=== PATIENT | female | born 1935 | race Caucasian/White ===

== ENCOUNTER 2020-06-26 14:29 | Inpatient (IN) | payer OTHER, BC ==
--- NOTE | 2020-06-26 16:12 | PDOC ---
History of Present Illness - General Chief Complaint: Respiratory Distress Stated Complaint: VOMITING NAUSEA WEAKNESS Time Seen by Provider: 06/26/20 15:30 History Source: Patient, Family Exam Limitations: No Limitations - History of Present Illness Initial Comments: 06/26/20 16:11 84F PMH RA, AFib, MV replacement, HTN BIBEMS for 1 day of severe weakness. Found to be hypoxic by EMS. Pt has experienced episodic weakness over the past few months but no episodes where this severe. No recent cough, sore throat, runny nose. Denies f/c, n/v, abd pain, dysuria. Has had weight loss over the past few months and poor appetite. no known sick contacts. Allergy to Sulfa drugs. PCP Dr. Oglesby. Past History - Medical History Allergies/Adverse Reactions: Allergies Allergy/AdvReac Type Severity Reaction Status Date / Time Sulfa (Sulfonamide Allergy Hives Verified 09/18/14 11:28 Antibiotics) [Sulfa(Sulfonamide Antibiotics)] Home Medications: Ambulatory Orders Folic Acid - 1 mg PO DAILY 08/29/12 Raloxifene HCl [Evista] 60 mg PO DAILY 08/29/12 Atorvastatin Ca [Lipitor] 20 mg PO HS #0 tablet 02/28/14 Azathioprine [Imuran -] 50 mg PO DAILY #0 tablet 02/28/14 Levothyroxine [Synthroid -] 75 mcg PO DAILY #0 tablet 02/28/14 Mexiletine HCl 150 mg PO TID #0 capsule 02/28/14 Olmesartan Medoxomil [Benicar -] 10 mg PO DAILY #0 tablet 02/28/14 Sotalol HCl [Betapace -] 160 mg PO BID #0 tablet 02/28/14 Warfarin Na [Coumadin -] 6 mg PO DAILY #0 tablet 02/28/14 Hydroxychloroquine So4 [Plaquenil -] 200 mg PO DAILY 09/18/14 Levofloxacin [Levaquin] 500 mg PO AC #10 tablet 09/23/14 Cancer: Yes (LUN01/2013) Cardiac Disorders: Yes (2 HEART VALVES REPLACED) COPD: No HTN: Yes Hypercholesterolemia: Yes Thyroid Disease: Yes (HYPO) - Surgical History Cardiac Surgery: Yes (2 VALVE REPLACEMENTS) Lung Surgery: Yes (LT PARTIAL PNEUMONECTOMY) - Psycho-Social/Smoking History Smoking Status: Yes Smoking History: Never smoked Have you smoked in the past 12 months: No Number of Cigarettes Smoked Daily: 0 If you are a former smoker, when did you quit?: 1989 - Substance Abuse Hx (Audit-C & DAST Scrn) How often the patient has a drink containing alcohol: Never Score: In Men: 4 or > Positive; In Women: 3 or > Positive: 0 Screen Result (Pos requires Nsg. Audit-10AR): Negative Review of Systems - Review of Systems Comments:: CONSTITUTIONAL: + generalized weakness, weight loss over months. Denies F / C HEENT: Denies sore throat, rhinorrhea RESP: Denies SOB, cough CARD: Denies chest pain GI: + poor appetite. Denies N / V / D : Denies dysuria NEURO: Denies numbness, tingling, weakness MSK: Denies back pain SKIN: Denies rashes *Physical Exam - Vital Signs Last Vital Signs Temp Pulse Resp BP Pulse Ox 98.1 F 83 20 93/43 L 100 06/26/20 15:38 06/26/20 15:38 06/26/20 15:38 06/26/20 15:38 06/26/20 15:38 - Physical Exam GEN: NAD, comfortable. AAOx3. HEENT: NC/AT, EOMI, PERRL. normal voice. Supple neck w/ FROM. CV: S1/S2, irregular, irregular, tachycardic LUNG: nondistressed respiration on 4L NC saturating 99%. WOB nl. no cyanosis. CTAB w/o wheezes, rales, crackles. GI: Soft, ndnt, +BS, no guarding, no rebound. MSK: No LE edema. No obvious deformities of all extremities. SKIN: Warm, dry, no rashes appreciated. PSYCH: Normal mood and affect. NEURO: Moving all extremities; able to sit upright by herself ED Treatment Course - LABORATORY CBC & Chemistry Diagram: 06/26/20 16:15 06/26/20 16:15 Medical Decision Making - Medical Decision Making 84F BIBEMS for severe generalized weakness. ?hypoxia per EMS. Examined while on 4L NC. DDX - Covid, PNA, consider PE though on warfarin, cardiac etiologies. consider possible malignancy. - cbc, cmp, lactic, cardiac, coags - VBG - CXR 10/07/20 18:11 labs reviewed elevated d-dimer and therapeutic level INR CXR image reviewed demonstrating possible infiltate on the LLL empirically cover with ceftriaxone and levaquin obtain CT Chest elevated troponin 1.24 obtaining EKG labs concerning for covid constellation; will give decadron pt had nail cape verdean on finger possibly interfering w/ pulse ox; SaO2 99% on room air 06/26/20 18:45 EKG 18:42 HR 128 AFib RVR, RBBB, TWI V3-4 Metoprolol ordered for rate control 06/26/20 19:55 Pt responded well to metoprolol with reduction of HR to 100s and increased in SBP from 90s to 130s. f/u CT read 06/26/20 22:11 increased trop to 4 repeat EKG c/s Dr. Galarza Service 06/26/20 22:[address] Darline gayle ASA, no AC needed since therapeutic on warfarin, medically manage, trend trops, monitor for chest pain pt was endorsed to hospitalist team for admission Discharge - Discharge Information Problems reviewed: Yes Clinical Impression/Diagnosis: Atrial fibrillation with RVR, Weakness Pneumonia Qualifiers: Pneumonia type: due to unspecified organism Laterality: left Lung location: lower lobe of lung Qualified Code(s): J18.9 - Pneumonia, unspecified organism Condition: Fair - Admission Yes - Follow up/Referral - Patient Discharge Instructions - Post Discharge Activity
[2020-06-26] MEDS ORDERED: SODIUM CHLORIDE 0.9% 500 ML INFUS.BAG IV ONE (16:28)
--- NOTE | 2020-06-26 16:32 | PDOC ---
Attending Attestation - Resident Resident Name: MarcialDenton - ED Attending Attestation I have performed the following: I have examined & evaluated the patient, The case was reviewed & discussed with the resident, I agree w/resident's findings & plan, Exceptions are as noted - HPI HPI: 06/26/20 16:32 84-year-old female with history rheumatoid arthritis, atrial fibrillation, status post mitral valve replacement brought in by EMS for 1 day of generalized weakness and hypoxemia associated with shortness of breath. - Physicial Exam PE: 06/26/20 16:49 nc, atr perrla, eomi decreased bs at the left base sft, nt, nd no LEs edema - Medical Decision Making 06/26/20 16:50 84-year-old female with history rheumatoid arthritis, atrial fibrillation on Coumadin, presents with generalized weakness, hypertension and hypoxemia which resolves on 4 L via nasal cannula. In the ED, patient noted to be mildly hypertensive, nontoxic-appearing, with decreased breath sounds at the left base. Chest x-ray reveals obscured left hemidiaphragm. Differential diagnosis includes CHF versus PE versus pneumonia versus COVID. Will obtain CBC/CMP/d- dimer/PTT/INR/blood cultures. Will administer antibiotic coverage for community-acquired pneumonia. Likely admission.Will consider CTA if patient noted to be subtherapeutic. Discharge - Discharge Information Problems reviewed: Yes Clinical Impression/Diagnosis: Pneumonia Qualifiers: Pneumonia type: due to unspecified organism Laterality: left Lung location: lower lobe of lung Qualified Code(s): J18.9 - Pneumonia, unspecified organism Condition: Fair - Follow up/Referral - Patient Discharge Instructions - Post Discharge Activity
[2020-06-26 17:01] LABS: BASO % 0.9 % (0-2.0); EOS % 0.7 % (0-4.5); HEMATOCRIT 37.6 % (32.4-45.2); LYMPH % 6.5 % (8-40); MCH 28.7 pg (25.7-33.7); MCHC 32.1 g/dl (32.0-36.0); MEAN CELL VOLUME 89.5 fl (80-96); MEAN PLT VOLUME 8.1 fl (7.5-11.1); MONO % 7.9 % (3.8-10.2); PLATELET COUNT 373 K/MM3 (134-434); RDW 18.3 % (11.6-15.6); WHITE BLOOD COUNT 7.4 K/mm3 (4.0-10.0)
[2020-06-26 17:14] LABS: INR 2.5 (0.83-1.09); PROTHROMBIN TIME (PATIENT) 29.8 SEC (9.7-13.0)
[2020-06-26 17:16] LABS: ACTIVATED PTT 43.8 SECONDS (25.2-36.5)
[2020-06-26] MEDS ORDERED: CEFTRIAXONE 1 GM in DEXTROSE 5%-WATER - 100 ML IVPB ONE (17:21)
[2020-06-26 17:28] LABS: ALBUMIN 3.6 g/dl (3.4-5.0); BILIRUBIN,TOTAL 0.7 mg/dL (0.2-1); CREATININE 1.1 mg/dL (0.55-1.3); POTASSIUM 4.8 mmol/L (3.5-5.1); TOT PROT 7.3 g/dl (6.4-8.2)
[2020-06-26] MEDS ORDERED: DEXAMETHASONE SOD PHOSPHATE 10 MG/1 ML VIAL IVPUSH ONE (18:15)
[2020-06-26 18:16] LABS: ARTERIAL BLD GAS O2 SATURATION 97.2 mmHg (95-98); ARTERIAL BLOOD GAS BASE EXCESS -2.7 mmol/L (-2-2); ARTERIAL BLOOD GAS PO2 92.7 mmHg (80-100); ARTERIAL BLOOD GAS pH 7.405 (7.350-7.450)
[2020-06-26 18:17] LABS: ALLENS TEST POSITIVE
[2020-06-26] MEDS ORDERED: SODIUM CHLORIDE 500 ML IV STA (18:37)
[2020-06-26] MEDS ORDERED: METOPROLOL TARTRATE 5 MG/5 ML VIAL IVPUSH ONE ×2 (18:39→22:28)
[2020-06-26] MEDS ORDERED: DEXAMETHASONE SOD PHOSPHATE 10 MG/1 ML VIAL ONE ×2 (18:39→19:28)
[2020-06-26] MEDS ORDERED: CEFTRIAXONE 1 GM/50 ML BAG ONE (18:40)
[2020-06-26] MEDS ORDERED: METOPROLOL TARTRATE 5 MG/5 ML VIAL ONE (18:52)
[2020-06-26] MEDS ORDERED: SOTALOL HCL 80 MG TABLET (FP) PO ONE (19:55)
[2020-06-26] MEDS ORDERED: ASPIRIN 81 MG CHEWABLE TABLETS PO ONE (22:17)
[2020-06-26] MEDS ORDERED: MAGNESIUM SULF 50% (8.12 MEQ/2 ML-1 GM VIAL) IVPB ONE (22:28)
[2020-06-27] MEDS: DEXTROSE 5%-NORMAL SALINE 1,000 ML IV SCH ×2 (01:30→08:30)
[2020-06-27 07:19] LABS: BASO % 0.4 % (0-2.0); HEMATOCRIT 27.4 % (32.4-45.2); HEMOGLOBIN 8.7 GM/dL (10.7-15.3); LYMPH % 7.2 % (8-40); MCH 29.3 pg (25.7-33.7); MCHC 31.6 g/dl (32.0-36.0); MEAN CELL VOLUME 92.6 fl (80-96); MEAN PLT VOLUME 8.3 fl (7.5-11.1); MONO % 5.7 % (3.8-10.2); NEUT % 86.7 % (42.8-82.8); PLATELET COUNT 242 K/MM3 (134-434); RBC 2.95 M/mm3 (3.60-5.2); RDW 19.1 % (11.6-15.6); WHITE BLOOD COUNT 4.1 K/mm3 (4.0-10.0)
[2020-06-27 07:21] LABS: URIC ACID 2.7 mg/dL (2.6-7.2)
[2020-06-27 08:00] LABS: BLOOD UREA NITROGEN 20.8 mg/dL (7-18); CREATININE 0.8 mg/dL (0.55-1.3); MAGNESIUM 2.1 mg/dL (1.8-2.4); POTASSIUM 3.5 mmol/L (3.5-5.1)
[2020-06-27] MEDS ORDERED: predniSONE 10 MG TABLET (UD) ONE (08:09)
[2020-06-27] MEDS ORDERED: LEVOTHYROXINE NA 25 MCG TABLET (FP) ONE (08:09)
[2020-06-27] MEDS: LEVOTHYROXINE NA 75 MCG TABLET (FP) PO SCH (08:29)
[2020-06-27 09:15] LABS: INR 3.45 (0.83-1.09); PROTHROMBIN TIME (PATIENT) 41.2 SEC (9.7-13.0)
[2020-06-27] MEDS ORDERED: predniSONE 10 MG TABLET (UD) PO SCH (10:00)
[2020-06-27 11:32] LABS: HEMATOCRIT 33.7 % (32.4-45.2); HEMOGLOBIN 11.4 GM/dL (10.7-15.3); MCH 29.9 pg (25.7-33.7); MCHC 33.8 g/dl (32.0-36.0); MEAN CELL VOLUME 88.6 fl (80-96); MEAN PLT VOLUME 8.4 fl (7.5-11.1); PLATELET COUNT 262 K/MM3 (134-434); RDW 18.3 % (11.6-15.6); WHITE BLOOD COUNT 4.8 K/mm3 (4.0-10.0)
[2020-06-27 12:05] LABS: BILIRUBIN,TOTAL 0.4 mg/dL (0.2-1); BLOOD UREA NITROGEN 20.8 mg/dL (7-18); CALCIUM 8.3 mg/dL (8.5-10.1); CREATININE 0.7 mg/dL (0.55-1.3); POTASSIUM 4.4 mmol/L (3.5-5.1); TOT PROT 6.4 g/dl (6.4-8.2)
--- NOTE | 2020-06-27 12:39 | CON.CARD ---
Cardiology Consult (text) - Consultation Consultation Note: cc: generalized weakness and sob hpi: 84 f hx mech AVR and mech MVR on AC, presumed cad (positive stress test), thoracic aortic aneurysm, lung ca s/p lobectomy, htn, hld, hypothyroid, NSVT on sotalol, here with generalized weakness and sob. Chronic sx for months. Found afib with rvr in ER, rate improved now, still with same sxs. No cp, palps, dizzy, loc, pnd, orthopnea, le edema. Sees dr witt for cardio. pmh: per hpi psh: avr, mvr social: no tob ros: per hpi; all others nl fam: no premature cad meds: Ambulatory Orders Folic Acid - 1 mg PO DAILY 08/29/12 Raloxifene HCl [Evista] 60 mg PO DAILY 08/29/12 Atorvastatin Ca [Lipitor] 20 mg PO HS #0 tablet 02/28/14 Azathioprine [Imuran -] 50 mg PO DAILY #0 tablet 02/28/14 Levothyroxine [Synthroid -] 75 mcg PO DAILY #0 tablet 02/28/14 Mexiletine HCl 150 mg PO TID #0 capsule 02/28/14 Olmesartan Medoxomil [Benicar -] 10 mg PO DAILY #0 tablet 02/28/14 Sotalol HCl [Betapace -] 160 mg PO BID #0 tablet 02/28/14 Warfarin Na [Coumadin -] 6 mg PO DAILY #0 tablet 02/28/14 Hydroxychloroquine So4 [Plaquenil -] 200 mg PO DAILY 09/18/14 Levofloxacin [Levaquin] 500 mg PO AC #10 tablet 09/23/14 pe: Vital Signs Period Temp Pulse Resp BP Sys/Thompson Pulse Ox Last 24 Hr 97.6 F-99.1 F 83-130 18-25 93-132/43-96 94-100 nad, no jvd [facility] s1 s2 no mrg cta b/l, nl eff aaox3 no le e/c/c abd nt nd pos bs no diaphoresis/jaundice pos dp/pt Laboratory Last Values WBC 4.8 K/mm3 (4.0-10.0) 06/27/20 11:03 RBC 3.80 M/mm3 (3.60-5.2) 06/27/20 11:03 Hgb 11.4 GM/dL (10.7-15.3) 06/27/20 11:03 Hct 33.7 % (32.4-45.2) D 06/27/20 11:03 MCV 88.6 fl (80-96) 06/27/20 11:03 MCH 29.9 pg (25.7-33.7) 06/27/20 11:03 MCHC 33.8 g/dl (32.0-36.0) 06/27/20 11:03 RDW 18.3 % (11.6-15.6) H 06/27/20 11:03 Plt Count 262 K/MM3 (134-434) 06/27/20 11:03 MPV 8.4 fl (7.5-11.1) 06/27/20 11:03 Absolute Neuts (auto) 3.6 K/mm3 (1.5-8.0) 06/27/20 06:18 Neutrophils % 86.7 % (42.8-82.8) H 06/27/20 06:18 Lymphocytes % 7.2 % (8-40) L 06/27/20 06:18 Monocytes % 5.7 % (3.8-10.2) 06/27/20 06:18 Eosinophils % 0.0 % (0-4.5) D 06/27/20 06:18 Basophils % 0.4 % (0-2.0) 06/27/20 06:18 Nucleated RBC % 0 % (0-0) 06/27/20 06:18 ESR 75 mm/hr (0-30) H 06/26/20 16:15 PT with INR 41.20 SEC (9.7-13.0) H 06/27/20 06:18 INR 3.45 (0.83-1.09) H 06/27/20 06:18 PTT (Actin FS) 43.8 SECONDS (25.2-36.5) H 06/26/20 16:15 D-Dimer 2008 ng/ml (0-500) H 06/26/20 16:15 Anticoagulation Therapy No Result Required. 06/26/20 17:48 Puncture Site Left radial 06/26/20 17:48 Patient Temperature No Result Required. 06/26/20 17:48 ABG pH 7.405 (7.350-7.450) 06/26/20 17:48 ABG pCO2 35.00 mmHg (35-45) 06/26/20 17:48 ABG pO2 92.7 mmHg (80-100) 06/26/20 17:48 ABG HCO3 21.4 mmol/L (22-27) L 06/26/20 17:48 ABG O2 Sat (Measured) 97.2 mmHg (95-98) 06/26/20 17:48 ABG O2 Content No Result Required. 06/26/20 17:48 ABG Base Excess -2.7 mmol/L (-2-2) L 06/26/20 17:48 Jabier Test Positive 06/26/20 17:48 Patient On Oxygen No 06/26/20 17:48 O2 Delivery Device Room air 06/26/20 17:48 Oxygen Flow Rate 21 06/26/20 17:48 Vent Mode No Result Required. 06/26/20 17:48 Vent Rate No Result Required. 06/26/20 17:48 Mechanical Rate No Result Required. 06/26/20 17:48 PEEP No Result Required. 06/26/20 17:48 Pressure Support Vent No Result Required. 06/26/20 17:48 Sodium 138 mmol/L (136-145) 06/27/20 11:03 Potassium 4.4 mmol/L (3.5-5.1) 06/27/20 11:03 Chloride 106 mmol/L (98-107) 06/27/20 11:03 Carbon Dioxide 25 mmol/L (21-32) 06/27/20 11:03 Anion Gap 8 MMOL/L (8-16) 06/27/20 11:03 BUN 20.8 mg/dL (7-18) H 06/27/20 11:03 Creatinine 0.7 mg/dL (0.55-1.3) 06/27/20 11:03 Est GFR (CKD-EPI)AfAm 92.21 06/27/20 11:03 Est GFR (CKD-EPI)NonAf 79.56 06/27/20 11:03 POC Glucometer 125 UNITS (80-120) 06/27/20 10:51 Random Glucose 112 mg/dL (74-106) H 06/27/20 11:03 Hemoglobin A1c % 5.0 % (4.2-6.3) 06/27/20 06:00 Lactic Acid 1.3 mmol/L (0.4-2.0) 06/26/20 20:54 Uric Acid 2.7 mg/dL (2.6-7.2) 06/27/20 06:00 Calcium 8.3 mg/dL (8.5-10.1) L 06/27/20 11:03 Magnesium 2.1 mg/dL (1.8-2.4) 06/27/20 06:00 Total Bilirubin 0.4 mg/dL (0.2-1) 06/27/20 11:03 AST 41 U/L (15-37) H 06/27/20 11:03 ALT 18 U/L (13-61) 06/27/20 11:03 Alkaline Phosphatase 49 U/L (45-117) 06/27/20 11:03 LD Total 481 U/L (84-246) H 06/26/20 16:15 Troponin I 4.66 ng/ml (0.00-0.05) H* 06/26/20 20:54 C-Reactive Protein 3.3 MG/DL (0.00-0.3) H 06/26/20 16:15 Total Protein 6.4 g/dl (6.4-8.2) 06/27/20 11:03 Albumin 3.0 g/dl (3.4-5.0) L 06/27/20 11:03 Triglycerides 101 mg/dL (0-150) 06/27/20 06:00 Cholesterol 196 mg/dL (50-200) 06/27/20 06:00 Total LDL Cholesterol 129 mg/dL (5-100) H 06/27/20 06:00 HDL Cholesterol 49 mg/dL (40-60) 06/27/20 06:00 Vitamin B12 786 pg/ml (193-986) 06/27/20 06:00 TSH 1.72 uIU/ml (0.358-3.74) 06/27/20 06:00 Free T4 1.04 ng/dl (0.76-1.46) 06/27/20 06:00 ct chest: no sig chf echo 06/2011: nl lv, nl rv, normal fcn mech mvr and avr, mild tr echo 06/2019: nl lv/rv, nl mech valves, mod tr, mild phtn, TAA 4.8 cm ecg 09/18/14: afib, rvr, rbbb mibi 02/2020: mod lat wall ischemia, nl lvef tele: afib, hr 70s a/p: 84 f hx mech AVR and mech MVR on AC, presumed cad (positive stress test), thoracic aortic aneurysm, lung ca s/p lobectomy, htn, hld, hypothyroid, NSVT on sotalol, here with generalized weakness and sob. weakness, sob: -no signs chf -infectious w/u in progress -initially with afib/rvr, now hr improved, monitor on tele elevated trops, cad: -pt with known hx of presumed cad with several prior abnormal stress tests. Most recent nuclear stress test was 02/2020 and showed mod lat wall ischemia which was felt to be low risk and not causing symptoms so continued with med rx. -currently with mild trop elevation, most likely from demand ischemia from afib with rvr and underlying cad, does not appear to be acs. Cont to trend ce's. Cont tele. Monitor for new sxs. Cont home ac, statin. -repeat echo pending s/p mech avr/mvr: -No signs of chf, normal function on 06/2019 echo. Continue coumadin per inr, goal 2.5-3.5. thoracic aortic aneurysm: -has been stable, Continue BP control as doing. Routine annual monitoring. htn: -bp on low side initially, improved now, monitor hld: -stable on statin. NSVT: - History of NSVT, maintained on sotalol and mexiltine per EP afib: -new diagnosis -cont ac -cont sotalol and mexilitine -rate improved, monitor on tele
--- NOTE | 2020-06-27 12:43 | EKG ---
Test Reason : Blood Pressure : / mmHG Vent. Rate : 128 BPM Atrial Rate : 107 BPM P-R Int : 000 ms QRS Dur : 114 ms QT Int : 368 ms P-R-T Axes : 000 -10 -46 degrees QTc Int : 537 ms ATRIAL FIBRILLATION WITH RAPID VENTRICULAR RESPONSE INCOMPLETE RIGHT BUNDLE BRANCH BLOCK NONSPECIFIC ST AND T WAVE ABNORMALITY ABNORMAL ECG WHEN COMPARED WITH ECG OF 18-SEP-2014 12:37, ATRIAL FIBRILLATION HAS REPLACED SINUS RHYTHM VENT. RATE HAS INCREASED BY 60 BPM INCOMPLETE RIGHT BUNDLE BRANCH BLOCK IS NOW PRESENT Confirmed by LANI CHANG MD ([id number]) on 06/27/2020 12:43:04 PM Referred By: Confirmed By:LANI CHANG MD
--- NOTE | 2020-06-27 12:43 | EKG ---
Test Reason : Blood Pressure : / mmHG Vent. Rate : 136 BPM Atrial Rate : 136 BPM P-R Int : 000 ms QRS Dur : 114 ms QT Int : 352 ms P-R-T Axes : 000 -27 -62 degrees QTc Int : 529 ms ATRIAL FIBRILLATION WITH RAPID VENTRICULAR RESPONSE INCOMPLETE RIGHT BUNDLE BRANCH BLOCK ABNORMAL ECG WHEN COMPARED WITH ECG OF 26-JUN-2020 18:42, NO SIGNIFICANT CHANGE WAS FOUND Confirmed by LANI CHANG MD ([id number]) on 06/27/2020 12:43:17 PM Referred By: Confirmed By:LANI CHANG MD
--- NOTE | 2020-06-27 13:57 | ECHO ---
Name: EDEL ULISES Exam:Adult Echocardiogram Study Date: 06/27/2020 09:01 AM Age: 84 yrs Reason For Study: CAD (+) Troponin Height: 65 in Weight: 122 lb BSA: 1.6 m2 MMode/2D Measurements & Calculations IVSd: 1.5 cm Ao root diam: 4.5 cm LVIDd: 3.6 cm LA dimension: 4.7 cm LVIDs: 2.3 cm LVPWd: 1.3 cm EDV(Teich): 56.2 ml LVOT diam: 2.0 cm ESV(Teich): 17.4 ml LAV (MOD-bp): 142.0 ml TAPSE: 2.4 cm RV S Se: 9.8 cm/sec Doppler Measurements & Calculations MV E max se: 143.0 cm/sec MVA(VTI): 2.7 cm2 MV A max se: 81.2 cm/sec MV V2 max: 133.0 cm/sec MV E/A: 1.8 MV max P.1 mmHg MV dec time: 0.17 sec MV V2 mean: 62.4 cm/sec MV mean P.9 mmHg MV V2 VTI: 30.3 cm MV P1/2t max se: 135.3 cm/sec Ao V2 max: 137.1 cm/sec MV P1/2t: 57.5 msec Ao max P.5 mmHg Ao V2 mean: 97.7 cm/sec MVA(P1/2t): 3.8 cm2 Ao mean P.3 mmHg MV dec slope: 689.6 cm/sec2 Ao V2 VTI: 26.5 cm LENA(I,D): 3.1 cm2 LENA(V,D): 3.2 cm2 LV V1 max P.5 mmHg SV(LVOT): 82.9 ml LV V1 mean P.0 mmHg LV V1 max: 145.5 cm/sec LV V1 mean: 92.2 cm/sec LV V1 VTI: 27.3 cm TR max se: 240.7 cm/sec PA V2 max: 77.4 cm/sec TR max P.3 mmHg PA max P.4 mmHg PA acc time: 0.14 sec PI end-d se: 86.9 cm/sec Med Peak E' Se: 4.9 cm/sec Med E/e': 29.2 Lat Peak E' Se: 6.3 cm/sec Lat E/e': 22.7 PA pr(Accel): 14.0 mmHg Procedure A complete two-dimensional transthoracic echocardiogram was performed (2D, M-mode, Doppler and color flow Doppler). Left Ventricle There is mild concentric left ventricular hypertrophy. The left ventricular ejection fraction is norm al. Ejection Fraction = 55-60%. No regional wall motion abnormalities noted. Right Ventricle The right ventricle is normal in size and function. Atria The left atrium is mildly dilated. The right atrium is mildly dilated. Mitral Valve There is a mechanical mitral valve with normal function. Tricuspid Valve There is mild tricuspid regurgitation. Right ventricular systolic pressure is normal. Aortic Valve There is a mechanical aortic valve with normal function. Pulmonic Valve Trace pulmonic valvular regurgitation. Great Vessels Moderate aortic root dilatation. Pericardium/Pleura There is no pericardial effusion. Interpretation Summary The left ventricular ejection fraction is normal. There is mild concentric left ventricular hypertrophy. The right ventricle is normal in size and function. The left atrium is mildly dilated. The right atrium is mildly dilated. There is a mechanical mitral valve with normal function. There is mild tricuspid regurgitation. There is a mechanical aortic valve with normal function. Trace pulmonic valvular regurgitation. Moderate aortic root dilatation. MD Melvin Melendez 06/27/2020 01:56 PM
[2020-06-27] MEDS: SOTALOL HCL 80 MG TABLET (FP) PO SCH ×2 (14:30→22:03)
--- NOTE | 2020-06-27 17:43 | HP ---
Admitting History and Physical - Primary Care Physician PCP: Trace Oglesby - Admission Chief Complaint: weakness History of Present Illness: 84 YoF BIBA from home with hx of ASHD, CAD, AtF (on a/c), Pulm VAISHNAVI, active RA, who c/o progressive worsening profound malaise, weakness, n/v, fatigue to the extent that she was not able to move herself around. She was seen 2 days ago in the office c/o persistent fatigue listless, weight loss, weakness (with varying intensity) which she has been c/o almost incessantly for many months antedating the COVID pandemic. For her RA, she has been managed by her Earth Boring Machine Operator with a cocktail of anti-Rheum drugs over many yrs (Arava, Imuran and Plaquenil) which she is still taking. She is on minute doses of all steroids as well. Work up did not reveal any definitive cause for such Sx though she was found to have persistently high inflammatory markers, high LDH. Tfts were WNL and imaging studies did not find any new findings which raise concerns for malignant disease. She denies any use of drugs, or alcohol though she admits that she does not "eat right". She was found to have pyuria at least twice which did not clear with antibiotics but had no specific sx suggesting acute UTI. Prior to arrival to the ER, she felt "faint" and was told by EM Tech en route that her BP was hard to detect, her HR was fast and oxygenation was low. She denied any CP, Lt arm pain but did c/o sweats prior to calling EMS. History Source: Patient, Medical Record Limitations to Obtaining History: No Limitations - Past Medical History HIDE PULLER: Yes: Peripheral Neuropathy Cardiovascular: Yes: Aneurysm (thoracic aorta), Aortic Insufficiency (s/p AVR), CAD, HTN, Hyperlipdemia, Other (Mv replacement) Pulmonary: Yes: Cancer (s/p resection), COPD Gastrointestinal: Yes: Constipation, Hemorrhoids (rectal stricture) Reproductive: Yes: Other (fluid within Uterus) Heme/Onc: Yes: Anemia (mild), Cancer (lung cancer ([place])) Infectious Disease: Yes: Other (MAC LUNG DISEASE) Psych: Yes: Depression (reactive) Musculoskeletal: Yes: Chronic low back pain Rheumatology: Yes: Rheumatoid Arthritis Endocrine: Yes: Hypothyroidism Dermatology: Yes: Other (scattered benign skin lesions) - Past Surgical History Past Surgical History: Yes: CABG Additional Past Surgical History: Thoracotomy Valve replacement status - Smoking History Smoking history: Never smoked Have you smoked in the past 12 months: No Aproximately how many cigarettes per day: 0 If you are a former smoker, when did you quit?: 1989 - Alcohol/Substance Use Hx Alcohol Use: No History of Substance Use: reports: None - Social History Usual Living Arrangement: Yes: Alone ADL: Independent Occupation: retired library office manager receptionist History of Recent Travel: No Home Medications - Allergies Allergies/Adverse Reactions: Allergies Allergy/AdvReac Type Severity Reaction Status Date / Time Sulfa (Sulfonamide Allergy Hives Verified 09/18/14 11:28 Antibiotics) [Sulfa(Sulfonamide Antibiotics)] - Home Medications Home Medications: Ambulatory Orders Folic Acid - 1 mg PO DAILY 08/29/12 Raloxifene HCl [Evista] 60 mg PO DAILY 08/29/12 Atorvastatin Ca [Lipitor] 20 mg PO HS #0 tablet 02/28/14 Azathioprine [Imuran -] 50 mg PO DAILY #0 tablet 02/28/14 Levothyroxine [Synthroid -] 75 mcg PO DAILY #0 tablet 02/28/14 Mexiletine HCl 150 mg PO TID #0 capsule 02/28/14 Olmesartan Medoxomil [Benicar -] 10 mg PO DAILY #0 tablet 02/28/14 Sotalol HCl [Betapace -] 160 mg PO BID #0 tablet 02/28/14 Warfarin Na [Coumadin -] 6 mg PO DAILY #0 tablet 02/28/14 Hydroxychloroquine So4 [Plaquenil -] 200 mg PO DAILY 09/18/14 Levofloxacin [Levaquin] 500 mg PO AC #10 tablet 09/23/14 Family Medical History Family Hx Cancer: Daughter Review of Systems - Review of Systems Constitutional: reports: Diaphoresis, Lethargy, Loss of Appetite, Malaise, Unintentional Wgt. Loss, Weakness Eyes: reports: No Symptoms HENT: reports: No Symptoms Neck: reports: No Symptoms Cardiovascular: reports: No Symptoms Respiratory: reports: No Symptoms Gastrointestinal: reports: No Symptoms Genitourinary: reports: No Symptoms Breasts: reports: No Symptoms Reported Musculoskeletal: reports: Joint Swelling (Rt knee) Integumentary: reports: No Symptoms Neurological: reports: Confusion, Dizziness, Incoordination, Unsteady Gait, Weakness Hematology/Lymphatic: reports: No Symptoms Psychiatric: reports: Altered Sleep Pattern Physical Examination Vital Signs: Vital Signs Temperature 97.6 F 06/27/20 07:21 Pulse Rate 84 06/27/20 07:21 Respiratory Rate 18 06/27/20 07:21 Blood Pressure 124/63 06/27/20 07:21 O2 Sat by Pulse Oximetry (%) 98 06/27/20 07:21 Findings/Remarks: skin--rosanna keratosis on skin of trunk. head--alopecia eyes--midline; eomi, anicteric oral--no appreciable mucosal lesions neck--no masses, nodes or goiter lungs--grosly clear, unlabored heart--mech Heart sounds irreg chest--old sternotomy scar breasts--deferred abd--benign back--no chantal tenderness, no CVAT extrem--no CCE; no gross unlar deviation of digits or visible joint destructive changes; degenerative changes noted on knees, feet and slight effusion of Rt knee w/o pain, redness. No calf tenderness, no ischemic changes. pedal pulses felt. Neuro--alert fully lucid, coherent, speech is fluent, no gross motor deficit, some peripheral loss of sensation noted CBCD WBC 4.8 K/mm3 (4.0-10.0) 06/27/20 11:03 RBC 3.80 M/mm3 (3.60-5.2) 06/27/20 11:03 Hgb 11.4 GM/dL (10.7-15.3) 06/27/20 11:03 Hct 33.7 % (32.4-45.2) D 06/27/20 11:03 MCV 88.6 fl (80-96) 06/27/20 11:03 MCHC 33.8 g/dl (32.0-36.0) 06/27/20 11:03 RDW 18.3 % (11.6-15.6) H 06/27/20 11:03 Plt Count 262 K/MM3 (134-434) 06/27/20 11:03 MPV 8.4 fl (7.5-11.1) 06/27/20 11:03 CMP Sodium 138 mmol/L (136-145) 06/27/20 11:03 Potassium 4.4 mmol/L (3.5-5.1) 06/27/20 11:03 Chloride 106 mmol/L (98-107) 06/27/20 11:03 Carbon Dioxide 25 mmol/L (21-32) 06/27/20 11:03 Anion Gap 8 MMOL/L (8-16) 06/27/20 11:03 BUN 20.8 mg/dL (7-18) H 06/27/20 11:03 Creatinine 0.7 mg/dL (0.55-1.3) 06/27/20 11:03 Random Glucose 112 mg/dL (74-106) H 06/27/20 11:03 Calcium 8.3 mg/dL (8.5-10.1) L 06/27/20 11:03 Total Bilirubin 0.4 mg/dL (0.2-1) 06/27/20 11:03 AST 41 U/L (15-37) H 06/27/20 11:03 ALT 18 U/L (13-61) 06/27/20 11:03 Alkaline Phosphatase 49 U/L (45-117) 06/27/20 11:03 Total Protein 6.4 g/dl (6.4-8.2) 06/27/20 11:03 Albumin 3.0 g/dl (3.4-5.0) L 06/27/20 11:03 CARDIAC ENZYMES Creatine Kinase 116 U/L (26-192) 06/27/20 11:03 Troponin I 2.36 ng/ml (0.00-0.05) H* 06/27/20 11:03 Labs: CBC, BMP 06/27/20 11:03 06/27/20 11:03 Imaging - Results Chest X-ray: Report Reviewed X-ray: Report Reviewed Cat Scan: Report Reviewed EKG: Report Reviewed Problem List - Problems (1) Weakness Assessment/Plan: acute on chronic, culminating in an acute episode of profound weakness, loss of stamina & strenght, along with near LOC, sweats, n-v, and possible low BP (as described by EMS). Causes can be [but not limited to], dehydration 2nd viral syndrome, IA, sepsis, adrenal insuff, toxic effects of anti-rheum drugs. CVA less likely. PlaN; supportive measure with IVF, Abs, steroids; will hold all 3 a nti-rheum agents for now. Code(s): R53.1 - WEAKNESS (2) Atrial fibrillation with RVR Assessment/Plan: longstanding; RVR was Tx with IV BB, will resume sotalol and maintain a/c with warf Code(s): I48.91 - UNSPECIFIED ATRIAL FIBRILLATION (3) Troponin level elevated Assessment/Plan: upon arriving to ER, w/o gross ekg changes. (+)Hx of CAD, Echo was benign, this can suggest demand ischemia from the acute phase of her illness in which she was likely hypotensive. PLAN: serial Trops; Cardio f/u, BP control Code(s): R77.8 - OTHER SPECIFIED ABNORMALITIES OF PLASMA PROTEINS (4) CAD (coronary artery disease) Assessment/Plan: has extensive CA calcification; had abnl stress test several months ago but does not have anginal Sx. Has elevated Trops which is likely 2nd prolonged low BP state. PLAN: Cardio eval; serial troponins, maintain HR WNL, as well as BP Code(s): I25.10 - ATHSCL HEART DISEASE OF [place] CORONARY ARTERY W/O ANG PCTRS Qualifiers: Coronary Disease-Associated Artery/Lesion type: [place] artery Associated angina: without angina (5) H/O aortic valve replacement Assessment/Plan: stable; on a/c Code(s): Z95.2 - PRESENCE OF PROSTHETIC HEART VALVE (6) Hypothyroid Assessment/Plan: TFTs are WNL; cont Supplement. Code(s): E03.9 - HYPOTHYROIDISM, UNSPECIFIED Qualifiers: Hypothyroidism type: acquired Qualified Code(s): E03.9 - Hypothyroidism, unspecified (7) Rheumatoid arthritis Assessment/Plan: chronic disease, which appears to be active based on high ESR and CRP as well as on clinical grounds as she displays severe malaise & fatigue but has not had any wrist and hand pains/swelling. PLAN: will halt use of 3 aforementioned drugs and replace with Prednisone for now. Code(s): M06.9 - RHEUMATOID ARTHRITIS, UNSPECIFIED Qualifiers: Rheumatoid arthritis location: unspecified site Rheumatoid factor presence: unspecified presence Qualified Code(s): M06.9 - Rheumatoid arthritis, unspecified (8) High lactic acid dehydrogenase (LDH) level Assessment/Plan: without specific source based on fractionations. Likely multiple factors at play. Malignancy cannot be r/o. She does not wish to undergo endoscopy, but no gross evidence of solid organ pathology on CT scanning, though Uterine abrnormality may require further investigation. 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 Recent chest CT shows largely stable pattern with sub Cm lesions. Has had no Pulm Sx, and has not needed any Tx. Code(s): A31.0 - PULMONARY MYCOBACTERIAL INFECTION (10) History of lung cancer in adulthood Assessment/Plan: Hx of Lung cancer, fully removed. No evidence of recurrent dz; this occurred while she was on Humira (for RA) but also has a previous smoking Hx. Code(s): Z85.118 - PERSONAL HISTORY OF MALIGNANT NEOPLASM OF BRONCHUS AND LUNG (11) Bacteriuria with pyuria Assessment/Plan: as a possible source of infection. repeat UA ordered but no specimen given. PLan: cont Abs. Code(s): R82.71 - BACTERIURIA; R82.81 - PYURIA (12) Pleural effusion Assessment/Plan: small, reactive; no PNA described. Could be 2nd to RA or the VAISHNAVI. Code(s): J90 - PLEURAL EFFUSION, NOT ELSEWHERE CLASSIFIED (13) Aortic aneurysm Assessment/Plan: ascending; stable in size Code(s): I71.9 - AORTIC ANEURYSM OF UNSPECIFIED SITE, WITHOUT RUPTURE Qualifiers: Aortic location: thoracic aorta Presence of rupture: without rupture Qualified Code(s): I71.2 - Thoracic aortic aneurysm, without rupture (14) Long-term (current) use of anticoagulants, INR goal 2.5-3.5 Assessment/Plan: for ATF with [facility] valve Code(s): Z79.01 - GROUNDS AND NURSERY SPECIALIST (CURRENT) USE OF ANTICOAGULANTS (15) History of ventricular tachycardia Assessment/Plan: has been taking Sotalol & Mexelitine. F/u with Cardiology Code(s): Z86.79 - PERSONAL HISTORY OF OTHER DISEASES OF THE CIRCULATORY SYSTEM Assessment/Plan 84 yo F with profound weakness with high troponins who has multiple overlapping co-morbidities that can severely impact on any single acute event to usher in further complicating events augmenting the process. Mgmt as described above. ~~~~~~~~~~~~~~~~~~~~~~~~~~~~~~~ Dr Oglesby
[2020-06-27] MEDS ORDERED: WARFARIN NA 5 MG TABLET PO SCH (18:00)
[2020-06-27] MEDS ORDERED: WARFARIN NA 5 MG TABLET ONE (18:03)
[2020-06-27] MEDS ORDERED: SOTALOL HCL 80 MG TABLET (FP) PO ONE (19:55)
[2020-06-27] MEDS ORDERED: predniSONE 2.5 MG TABLET PO SCH (21:37)
[2020-06-27] MEDS ORDERED: MIRTAZAPINE 15 MG TABLET (FP) PO SCH (22:00)
[2020-06-27] MEDS: CEFUROXIME AXETIL 250 MG TABLET PO SCH (22:02)
[2020-06-27 23:16] LABS: EPI CELLS >36 /uL (0-25.1); HYALINE CASTS 2 /uL (0-3.1); PH,URINE 5.5 (5.0-8.0); URINE APPEARANCE CLEAR; URINE BACTERIA 18 /uL (0-1359); URINE BILIRUBIN NEGATIVE (NEGATIVE); URINE COLOR YELLOW; URINE GLUCOSE (UA) NEGATIVE (NEGATIVE); URINE KETONE NEGATIVE (NEGATIVE); URINE LEUK ESTERASE 2+ (NEGATIVE); URINE NITRITE NEGATIVE (NEGATIVE); URINE PROTEIN NEGATIVE (NEGATIVE); URINE RBC 23 /uL (0-23.9); URINE UROBILINOGEN 0.2 mg/dL (0.2-1.0); URINE WBC 147 /uL (0-25.8)
[2020-06-27 23:19] VITALS: BMI 20.5
--- NOTE | 2020-06-28 05:22 | PN ---
Progress Note, Physician Chief Complaint: sitting up "I feel much better today" TELE: reviewed. NSR. Short self limited burst PSVT- regular. Not AFIB although initially did have AF w/ RVR Denies CP/SOB/dizziness [facility] Thoracic aortic aneurysm PAF w/ RVR Elevated Troponin SH: non smoker - Current Medication List Current Medications: Active Medications Cefuroxime Axetil (Ceftin -) 250 mg PO BID [facility] Last Admin: 06/27/20 22:02 Dose: 250 mg Documented by: Levothyroxine Sodium (Synthroid -) 75 mcg PO DAILY@0700 [facility] Last Admin: 06/27/20 08:29 Dose: 75 mcg Documented by: Mirtazapine (Remeron -) 7.5 mg PO HS [facility] Last Admin: 06/27/20 22:02 Dose: 7.5 mg Documented by: Prednisone (Deltasone -) 7.5 mg PO DAILY [facility] Sotalol HCl (Betapace -) 160 mg PO BID [facility] Last Admin: 06/27/20 22:03 Dose: 160 mg Documented by: Warfarin Sodium (Coumadin -) 5 mg PO DAILY@1800 [facility] Last Admin: 06/27/20 18:05 Dose: 5 mg Documented by: - Objective Vital Signs: Vital Signs Temperature 97.5 F L 06/28/20 00:00 Pulse Rate 72 06/28/20 00:00 Respiratory Rate 20 06/28/20 00:00 Blood Pressure 134/64 06/28/20 00:00 O2 Sat by Pulse Oximetry (%) 97 06/27/20 20:15 Constitutional: Yes: No Distress, Calm Eyes: Yes: Conjunctiva Clear, EOM Intact Cardiovascular: Yes: Regular Rate and Rhythm Respiratory: Yes: CTA Bilaterally (no rales or wheezing) Gastrointestinal: Yes: Soft (nt) Edema: No Neurological: Yes: Alert, Oriented ...Motor Strength: WNL Labs: CBC, BMP 06/27/20 11:03 06/27/20 11:03 INR, PTT INR 3.45 (0.83-1.09) H 06/27/20 06:18 Laboratory Tests 06/26/20 06/27/20 06/27/20 16:15 06:18 11:03 PT with INR 41.20 H INR 3.45 H Sodium Potassium Creatinine Magnesium Creatine Kinase 116 Troponin I 1.24 H* 2.36 H* 06/28/20 06/28/20 05:50 05:50 PT with INR 43.00 H INR 3.60 H Sodium 142 Potassium 4.2 Creatinine 0.7 Magnesium 2.3 Creatine Kinase 80 Troponin I 1.58 H* - ....Imaging EKG: Image Reviewed Assessment/Plan DATA: ct chest: no sig chf echo 06/2019: nl lv/rv, nl mech valves, mod tr, mild phtn, TAA 4.8 cm ecg 09/18/14: afib, rvr, rbbb mibi 02/2020: mod lat wall ischemia, nl lvef tele: NSR, PSVR overnight and prolonged QT a/p: 84 f hx mech AVR and mech MVR on AC, presumed cad (positive stress test), thoracic aortic aneurysm, lung ca s/p lobectomy, htn, hld, hypothyroid, NSVT on sotalol, here with generalized weakness and sob. weakness, sob: -no signs chf -infectious w/u in progress -initially with afib/rvr, now hr improved, monitor on tele elevated trops, cad: -pt with known hx of presumed cad with several prior abnormal stress tests. Most recent nuclear stress test was 02/2020 and showed mod lat wall ischemia which was felt to be low risk and not causing symptoms so continued with med rx. -currently with mild trop elevation, most likely from demand ischemia from afib with rvr and underlying cad, does not appear to be acs as she is asymptomatic without chest pain/anginal sx -Cont tele. -cont home ac, statin. -repeat echo normal LVEF with normally functioning MVR/AVR s/p mech avr/mvr: -No signs of chf, normal function on echo. Continue coumadin per inr, goal 2.5- 3.5. thoracic aortic aneurysm: -has been stable, Continue BP control as doing. Routine annual monitoring. htn: -bp on low side initially, improved now, monitor hld: -stable on statin. NSVT: - History of NSVT, maintained on sotalol and mexiltine per EP afib: -new diagnosis -cont ac -cont sotalol and mexilitine -rate improved, monitor on tele Prolonged QT on tele: -keep K/Mg 2+ normalized -Would discontinue Remeron as there have been reported cases of QT prolongation and VT
[2020-06-28] MEDS: LEVOTHYROXINE NA 75 MCG TABLET (FP) PO SCH (06:18)
[2020-06-28 07:21] LABS: INR 3.6 (0.83-1.09)
[2020-06-28 07:38] LABS: POTASSIUM 4.2 mmol/L (3.5-5.1)
[2020-06-28 07:39] LABS: HEMOGLOBIN 10.5 GM/dL (10.7-15.3); MCH 29.4 pg (25.7-33.7); MEAN CELL VOLUME 89.3 fl (80-96); MEAN PLT VOLUME 8.6 fl (7.5-11.1); PLATELET COUNT 255 K/MM3 (134-434); RBC 3.58 M/mm3 (3.60-5.2); RDW 18.6 % (11.6-15.6); WHITE BLOOD COUNT 4.1 K/mm3 (4.0-10.0)
[2020-06-28 07:47] LABS: BLOOD UREA NITROGEN 35.5 mg/dL (7-18); CALCIUM 8.5 mg/dL (8.5-10.1); CREATININE 0.7 mg/dL (0.55-1.3); MAGNESIUM 2.3 mg/dL (1.8-2.4)
[2020-06-28] MEDS ORDERED: PT OWN MED DRAWER 7, Y5N ONE ×2 (08:41→09:33)
[2020-06-28] MEDS: CEFUROXIME AXETIL 250 MG TABLET PO SCH ×2 (09:38→21:42)
[2020-06-28] MEDS: SOTALOL HCL 80 MG TABLET (FP) PO SCH ×2 (09:38→21:42)
[2020-06-28] MEDS: predniSONE 5 MG TABLET (UD) PO SCH (09:58)
--- NOTE | 2020-06-28 10:30 | EKG ---
Test Reason : Blood Pressure : / mmHG Vent. Rate : 081 BPM Atrial Rate : 081 BPM P-R Int : 158 ms QRS Dur : 110 ms QT Int : 446 ms P-R-T Axes : 028 -19 -14 degrees QTc Int : 518 ms NORMAL SINUS RHYTHM INCOMPLETE RIGHT BUNDLE BRANCH BLOCK NONSPECIFIC ST ABNORMALITY PROLONGED QT ABNORMAL ECG WHEN COMPARED WITH ECG OF 26-JUN-2020 22:23, SINUS RHYTHM HAS REPLACED ATRIAL FIBRILLATION VENT. RATE HAS DECREASED BY 55 BPM T WAVE INVERSION NO LONGER EVIDENT IN ANTERIOR LEADS Confirmed by ROSA ORTIZ MD ([id number]) on 06/28/2020 10:30:16 AM Referred By: Confirmed By:ROSA ORTIZ MD
--- NOTE | 2020-06-28 12:36 | PN ---
Progress Note (short form) - Note Progress Note: Manual QTc done on 12 lead ECG ([place]): 511ms.
[2020-06-28] MEDS: SODIUM CHLORIDE 0.45% 1,000 ML IV SCH (12:37)
--- NOTE | 2020-06-28 13:28 | PN ---
Progress Note (short form) - Note Progress Note: Active Medications Cefuroxime Axetil (Ceftin -) 250 mg PO BID [facility] Last Admin: 06/28/20 09:38 Dose: 250 mg Documented by: Sodium Chloride (1/2 Normal Saline) 1,000 mls @ 75 mls/hr IV ASDIR [facility] Last Admin: 06/28/20 12:37 Dose: 75 mls/hr Documented by: Levothyroxine Sodium (Synthroid -) 75 mcg PO DAILY@0700 [facility] Last Admin: 06/28/20 06:18 Dose: 75 mcg Documented by: Mexilitene 150mg (Tablet) 1 each PO BID [facility] Prednisone (Deltasone -) 7.5 mg PO DAILY [facility] Last Admin: 06/28/20 09:58 Dose: Not Given Documented by: Sotalol HCl (Betapace -) 160 mg PO BID [facility] Last Admin: 06/28/20 09:38 Dose: 160 mg Documented by: Trazodone HCl (Desyrel -) 50 mg PO HS [facility] Warfarin Sodium (Coumadin -) 3 mg PO DAILY@1800 [facility] Laboratory Results - last 24 hr 06/27/20 06/27/20 06/28/20 11:03 22:00 05:50 WBC RBC Hgb Hct MCV MCH MCHC RDW Plt Count MPV PT with INR INR Sodium 138 142 Potassium 4.4 4.2 Chloride 106 110 H Carbon Dioxide 25 13 L Anion Gap 8 19 H BUN 20.8 H 35.5 H Creatinine 0.7 0.7 Est GFR (CKD-EPI)AfAm 92.21 92.21 Est GFR (CKD-EPI)NonAf 79.56 79.56 Random Glucose 112 H 76 Calcium 8.3 L 8.5 Magnesium 2.3 Total Bilirubin 0.4 AST 41 H ALT 18 Alkaline Phosphatase 49 Creatine Kinase 116 80 Troponin I 2.36 H* 1.58 H* Total Protein 6.4 Albumin 3.0 L Urine Color Yellow Urine Appearance Clear Urine pH 5.5 Ur Specific [place] 1.007 L Urine Protein Negative Urine Glucose (UA) Negative Urine Ketones Negative Urine Blood Negative Urine Nitrite Negative Urine Bilirubin Negative Urine Urobilinogen 0.2 Ur Leukocyte Esterase 2+ H Urine WBC (Auto) 147 Urine RBC (Auto) 23 Urine Casts (Auto) 2 U Epithel Cells (Auto) >36 Urine Bacteria (Auto) 18 06/28/20 06/28/20 05:50 05:50 WBC 4.1 RBC 3.58 L Hgb 10.5 L Hct 32.0 L MCV 89.3 MCH 29.4 MCHC 33.0 RDW 18.6 H Plt Count 255 MPV 8.6 PT with INR 43.00 H INR 3.60 H Sodium Potassium Chloride Carbon Dioxide Anion Gap BUN Creatinine Est GFR (CKD-EPI)AfAm Est GFR (CKD-EPI)NonAf Random Glucose Calcium Magnesium Total Bilirubin AST ALT Alkaline Phosphatase Creatine Kinase Troponin I Total Protein Albumin Urine Color Urine Appearance Urine pH Ur Specific [place] Urine Protein Urine Glucose (UA) Urine Ketones Urine Blood Urine Nitrite Urine Bilirubin Urine Urobilinogen Ur Leukocyte Esterase Urine WBC (Auto) Urine RBC (Auto) Urine Casts (Auto) U Epithel Cells (Auto) Urine Bacteria (Auto) Vital Signs Temperature 97.7 F 06/28/20 09:00 Pulse Rate 86 06/28/20 09:00 Respiratory Rate 20 06/28/20 09:00 Blood Pressure 146/85 06/28/20 09:00 O2 Sat by Pulse Oximetry (%) 97 06/28/20 09:50 CC: feels better ```````````````````` skin--NL color eyes--anicteric; eomi heart--RR [facility] lungs--clear ext--no edemaneuro--alert; lucid, coherent, no deficits noted ````````````````````````````````````````````` Summ > elevated Trop--trending down (see cardio note); cont same agents > Azotemia--? dehydration; start IVF, encourage Po fluid intake > PaTF--with [facility] valve; cont a/c, adjust to INR 3 to 3.5 > RA--active disease, now off immunosupressing drugs due to intolerable ill effects > fatigue--nearly resolved, once taken off immune agents and started on prednisone > Qt prolongation--as per cardio; Dr Cook consult requested. Hope to resume mexitil for now; as she has hx of Vtach ``````````````````````````````` Dr Oglesby Problem List - Problems (1) Weakness Code(s): R53.1 - WEAKNESS (2) Atrial fibrillation with RVR Code(s): I48.91 - UNSPECIFIED ATRIAL FIBRILLATION (3) Troponin level elevated Code(s): R77.8 - OTHER SPECIFIED ABNORMALITIES OF PLASMA PROTEINS (4) CAD (coronary artery disease) Code(s): I25.10 - ATHSCL HEART DISEASE OF [place] CORONARY ARTERY W/O ANG PCTRS Qualifiers: Coronary Disease-Associated Artery/Lesion type: [place] artery Associated angina: without angina (5) H/O aortic valve replacement Code(s): Z95.2 - PRESENCE OF PROSTHETIC HEART VALVE (6) Hypothyroid Code(s): E03.9 - HYPOTHYROIDISM, UNSPECIFIED Qualifiers: Hypothyroidism type: acquired Qualified Code(s): E03.9 - Hypothyroidism, unspecified (7) Rheumatoid arthritis Code(s): M06.9 - RHEUMATOID ARTHRITIS, UNSPECIFIED Qualifiers: Rheumatoid arthritis location: unspecified site Rheumatoid factor presence: unspecified presence Qualified Code(s): M06.9 - Rheumatoid arthritis, unspecified (8) High lactic acid dehydrogenase (LDH) level Code(s): R74.02 - ELEVATION OF LEVELS OF LACTIC ACID DEHYDROGENASE [LDH] (9) MAIC (mycobacterium avium-intracellulare complex) Code(s): A31.0 - PULMONARY MYCOBACTERIAL INFECTION (10) History of lung cancer in adulthood Code(s): Z85.118 - PERSONAL HISTORY OF MALIGNANT NEOPLASM OF BRONCHUS AND LUNG (11) Bacteriuria with pyuria Code(s): R82.71 - BACTERIURIA; R82.81 - PYURIA (12) Pleural effusion Code(s): J90 - PLEURAL EFFUSION, NOT ELSEWHERE CLASSIFIED (13) Aortic aneurysm Code(s): I71.9 - AORTIC ANEURYSM OF UNSPECIFIED SITE, WITHOUT RUPTURE Qualifiers: Aortic location: thoracic aorta Presence of rupture: without rupture Qualified Code(s): I71.2 - Thoracic aortic aneurysm, without rupture (14) Long-term (current) use of anticoagulants, INR goal 2.5-3.5 Code(s): Z79.01 - FUND DEVELOPMENT MANAGER (CURRENT) USE OF ANTICOAGULANTS (15) History of ventricular tachycardia Code(s): Z86.79 - PERSONAL HISTORY OF OTHER DISEASES OF THE CIRCULATORY SYSTEM
[2020-06-28] MEDS: MEXILETINE 150 MG PO SCH ×2 (15:44→21:44)
[2020-06-28] MEDS: WARFARIN NA 3 MG TABLET PO SCH (17:44)
[2020-06-28] MEDS ORDERED: MIRTAZAPINE 15 MG TABLET (FP) PO SCH (22:00)
[2020-06-28] MEDS ORDERED: traZODone HCL 50 MG TABLET (FP) PO SCH (22:00)
--- NOTE | 2020-06-28 22:46 | CON.CARD ---
Consult Consult Specialty:: Cardiac Electrophysiology Referred by:: Dr. Orellana Reason for Consultation:: Abnormal EKG - History of Present Illness Chief Complaint: Fatigue History of Present Illness: Ms. Comer is an 84 year old female [facility] M[facility] on AC, presumed cad (positive stress test), thoracic aortic aneurysm, lung ca s/p lobectomy, htn, hld, hypothyroid, reported prior cardiac arrest 20 years ago, medically treated with sotalol and mexilitine, PAF who presented with generalized weakness and sob. Upon presentation in the ER, the patient was found to be in AF with RVR. This spontaneously converted to NSR. Her symptoms have improved during hospitalization. Covid testing pending. She denies any chest pain, palpitations, near or true syncope. Her primary elevator worker is Dr. Galarza. She was seen by Dr. De La O for EP about 1 year ago. At that time, she was recommended to decrease her Sotalol and Mexilitine by Dr. De La O but she declined. She states that approximately 20 years ago, she had cardiac arrest due to "ventricular arrhythmias" and was shocked. She states that she was started on mexilitine and sotalol at the time and has been maintained on both medications since then. She was previously on sotalol 120 mg po q12 but this was increased. She states this was a long time ago. Echo during this hospitalization, normal LVEF. EKG: iRBBB/RBBB, prolonged Qtc. ct chest: no sig chf echo 06/2011: nl lv, nl rv, normal fcn mech mvr and avr, mild tr echo 06/2019: nl lv/rv, nl mech valves, mod tr, mild phtn, TAA 4.8 cm ecg 09/18/14: afib, rvr, rbbb mibi 02/2020: mod lat wall ischemia, nl lvef - History Source History Provided By: Patient Limitations to Obtaining History: No Limitations - Past Medical History HOSPITALIST PHYSICIAN: Yes: Peripheral Neuropathy Cardio/Vascular: Yes: Aneurysm (thoracic aorta), Aortic Insufficiency (s/p AVR), CAD, HTN, Hyperlipdemia, Other (Mv replacement) Pulmonary: Yes: Cancer (s/p resection), COPD Gastrointestinal: Yes: Constipation, Hemorrhoids (rectal stricture) Infectious Disease: Yes: Other (MAC LUNG DISEASE) Psych: Yes: Depression (reactive) Musculoskeletal: Yes: Chronic low back pain Rheumatology: Yes: Rheumatoid Arthritis Endocrine: Yes: Hypothyroidism Dermatology: Yes: Other (scattered benign skin lesions) - Past Surgical History Past Surgical History: Yes: CABG - Alcohol/Substance Use Hx Alcohol Use: No History of Substance Use: reports: None - Smoking History Smoking history: Never smoked Have you smoked in the past 12 months: No Aproximately how many cigarettes per day: 0 If you are a former smoker, when did you quit?: 1989 - Social History ADL: Independent 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 History of Recent Travel: No Home Medications - Allergies Allergies/Adverse Reactions: Allergies Allergy/AdvReac Type Severity Reaction Status Date / Time Sulfa (Sulfonamide Allergy Hives Verified 09/18/14 11:28 Antibiotics) [Sulfa(Sulfonamide Antibiotics)] - Home Medications Home Medications: Ambulatory Orders Folic Acid - 1 mg PO DAILY 08/29/12 Raloxifene HCl [Evista] 60 mg PO DAILY 08/29/12 Atorvastatin Ca [Lipitor] 20 mg PO HS #0 tablet 02/28/14 Azathioprine [Imuran -] 50 mg PO DAILY #0 tablet 02/28/14 Levothyroxine [Synthroid -] 75 mcg PO DAILY #0 tablet 02/28/14 Mexiletine HCl 150 mg PO TID #0 capsule 02/28/14 Olmesartan Medoxomil [Benicar -] 10 mg PO DAILY #0 tablet 02/28/14 Sotalol HCl [Betapace -] 160 mg PO BID #0 tablet 02/28/14 Warfarin Na [Coumadin -] 6 mg PO DAILY #0 tablet 02/28/14 Hydroxychloroquine So4 [Plaquenil -] 200 mg PO DAILY 09/18/14 Levofloxacin [Levaquin] 500 mg PO AC #10 tablet 09/23/14 Family Medical History Family Hx Cancer: Daughter Review of Systems - Review of Systems Constitutional: reports: Malaise Eyes: denies: Eye Pain HENT: denies: Epistaxis Neck: denies: Decreased ROM Cardiovascular: reports: Shortness of Breath. denies: Chest Pain, Palpitations Respiratory: reports: SOB Gastrointestinal: denies: Abdominal Pain, Nausea, Rectal Bleeding, Vomiting Genitourinary: denies: Dysuria Musculoskeletal: denies: Extremity Pain Neurological: denies: Change in LOC, Dizziness, Syncope Vital Signs: Vital Signs Temperature 98.8 F 06/28/20 20:14 Pulse Rate 84 06/28/20 20:14 Respiratory Rate 18 06/28/20 20:14 Blood Pressure 126/68 06/28/20 20:14 O2 Sat by Pulse Oximetry (%) 94 L 06/28/20 20:14 Constitutional: Yes: Well Nourished, No Distress, Calm Eyes: Yes: Conjunctiva Clear, EOM Intact HENT: Yes: Atraumatic, Normocephalic Neck: Yes: Supple, Trachea Midline Respiratory: Yes: Regular, CTA Bilaterally Gastrointestinal: Yes: Normal Bowel Sounds, Soft Cardiovascular: Yes: Regular Rate and Rhythm Heart Sounds: Yes: S1 (mech), S2 (mech) Edema: No Neurological: Yes: Alert, Oriented - Other Data Labs, Other Data: CBC, BMP 06/28/20 05:50 06/28/20 05:50 INR, PTT INR 3.60 (0.83-1.09) H 06/28/20 05:50 Troponin, BNP 06/28/20 05:50 Troponin I 1.58 H* Troponin, BNP 06/28/20 05:50 Troponin I 1.58 H* Imaging - Results EKG: Image Reviewed Problem List - Problems (1) PVC's (premature ventricular contractions) Code(s): I49.3 - VENTRICULAR PREMATURE DEPOLARIZATION (2) Atrial fibrillation with RVR Code(s): I48.91 - UNSPECIFIED ATRIAL FIBRILLATION (3) History of ventricular tachycardia Code(s): Z86.79 - PERSONAL HISTORY OF OTHER DISEASES OF THE CIRCULATORY SYSTEM (4) Mitral valve replaced Code(s): Z95.2 - PRESENCE OF PROSTHETIC HEART VALVE Assessment/Plan telemetry reviewed, no significant events in last 24 hours. rare pvc's. no reported prior events except for AF which spontaneously converted. likely incited by underlying condition on presentation. prior EKG with AF noted. on coumadin due to AF, mechanical valves. overall feels significantly better since admission, likely related to underlying conditions and AF. denies chest pain, palpitations, near or true syncope. previously hx of ventricular arrhythmia, started on sotalol and mexilitine which pt believes she has done well by. qtc mildly prolonged. when corrected for heart rate, it is approximately 510 ms. of note, her irbbb/rbbb makes the qtc likely overestimated although there is no clear calculation for this. i had an extensive conversation with the patient regarding her history and her findings. she is unclear to the etiology of her initial ventricular tachyarrhythmia. she last saw her EP about 1 year ago and he had advocated her reducing her rx but pt has been reluctant. she has been on other qtc prolonging drugs, some of which were recently changed. given her mostly negative telemetry findings and absence of near or true syncopal events, have recommended slight decrease in sotalol dosing to bring her qtc <= 500 ms. pt in agreement with this plan. she prefers a medically conservative approach and this is reasonable. she has been doing well on her combination therapy for many years. echo with normal LVEF. recent nuclear stress test results noted, being managed medically. - c/w coumadin, goal for dosing mech valves and AF - keep k 4-4.5, mg 2-2.5 - reduce sotalol to 120 q12, ordered - c/w mexilitine - would reevaluate long-term need for sotalol/mexilitine combination therapy should clinical condition change. otherwise given her tolerance for all these years and her reluctance to change her therapies and goals, would continue for now with dosing change as described above. - treatment of underlying condition per medicine - outpt event monitoring - care as per cardiology, primary services - case d/w Dr. Orellana Time spent: 50 minutes Thank you for allowing me to participate in the care of this patient. Please call with any questions.
[2020-06-29] MEDS: SODIUM CHLORIDE 0.45% 1,000 ML IV SCH ×2 (02:39→16:27)
[2020-06-29] MEDS: LEVOTHYROXINE NA 75 MCG TABLET (FP) PO SCH (06:04)
[2020-06-29 06:51] LABS: HEMATOCRIT 31.4 % (32.4-45.2); HEMOGLOBIN 10.2 GM/dL (10.7-15.3); MCH 28.8 pg (25.7-33.7); MCHC 32.6 g/dl (32.0-36.0); MEAN CELL VOLUME 88.4 fl (80-96); MEAN PLT VOLUME 7.8 fl (7.5-11.1); PLATELET COUNT 245 K/MM3 (134-434); RBC 3.55 M/mm3 (3.60-5.2); RDW 18.5 % (11.6-15.6); WHITE BLOOD COUNT 3.6 K/mm3 (4.0-10.0)
[2020-06-29 06:54] LABS: PROTHROMBIN TIME (PATIENT) 50.2 SEC (9.7-13.0)
[2020-06-29 07:27] LABS: BLOOD UREA NITROGEN 22.8 mg/dL (7-18); CREATININE 0.6 mg/dL (0.55-1.3); POTASSIUM 4.1 mmol/L (3.5-5.1)
[2020-06-29 07:46] LABS: INR 4.19 (0.83-1.09)
[2020-06-29] MEDS: CEFUROXIME AXETIL 250 MG TABLET PO SCH ×2 (09:12→21:23)
[2020-06-29] MEDS: SOTALOL HCL 80 MG TABLET (FP) PO SCH ×2 (09:12→21:23)
[2020-06-29] MEDS: predniSONE 5 MG TABLET (UD) PO SCH (09:13)
[2020-06-29] MEDS: MEXILETINE 150 MG PO SCH ×2 (09:24→21:24)
--- NOTE | 2020-06-29 12:53 | PN ---
Progress Note (short form) - Note Progress Note: cc: weakness s: feels better today, no chest pain, palps, dizziness, dyspnea Current Medications Generic Name Dose Route Start Last Admin Trade Name Victor M PRN Reason Stop Dose Admin Cefuroxime Axetil 250 mg 06/27/20 22:00 06/29/20 09:12 Ceftin - PO 250 mg BID VICENTE Administration Sodium Chloride 1,000 mls @ 75 mls/hr 06/28/20 12:15 06/29/20 02:39 1/2 Normal Saline IV 75 mls/hr ASDIR VICENTE Administration Levothyroxine Sodium 75 mcg 06/27/20 07:00 06/29/20 06:04 Synthroid - PO 75 mcg DAILY@0700 VICENTE Administration Mexilitene 150mg 1 each 06/28/20 10:00 06/29/20 09:24 Tablet PO 1 each BID VICENTE Administration Prednisone 7.5 mg 06/28/20 10:00 06/29/20 09:13 Deltasone - PO 7.5 mg DAILY VICENTE Administration Sotalol HCl 120 mg 06/28/20 22:00 06/29/20 09:12 Betapace - PO 120 mg BID VICENTE Administration Trazodone HCl 50 mg 06/28/20 22:00 06/28/20 21:42 Desyrel - PO 50 mg HS VICENTE Administration Warfarin Sodium 3 mg 06/28/20 12:13 06/28/20 17:44 Coumadin - PO 3 mg DAILY@1800 VICENTE Administration Vital Signs Period Temp Pulse Resp BP Sys/Thompson Pulse Ox Last 24 Hr 97.2 F-98.8 F 77-84 18-20 100-140/57-80 93-98 Constitutional: Yes: No Distress, Calm Eyes: Yes: Conjunctiva Clear, EOM Intact Cardiovascular: Yes: Regular Rate and Rhythm, nl s1 s2 Respiratory: Yes: CTA Bilaterally (no rales or wheezing) Gastrointestinal: Yes: Soft (nt) Edema: No Neurological: Yes: Alert, Oriented no jaundice, diaphoresis not agitated Assessment/Plan DATA: ct chest: no sig chf echo 06/2019: nl lv/rv, nl mech valves, mod tr, mild phtn, TAA 4.8 cm ecg 09/18/14: afib, rvr, rbbb mibi 02/2020: mod lat wall ischemia, nl lvef tele: NSR, QTc 500-518 a/p: 84 f hx mech AVR and mech MVR on AC, presumed cad (positive stress test), thoracic aortic aneurysm, lung ca s/p lobectomy, htn, hld, hypothyroid, NSVT on sotalol, here with generalized weakness and sob. weakness, sob: -no signs chf -infectious w/u in progress -initially with afib/rvr, now hr improved, monitor on tele elevated trops, cad: -pt with known hx of presumed cad with several prior abnormal stress tests. Most recent nuclear stress test was 02/2020 and showed mod lat wall ischemia which was felt to be low risk and not causing symptoms so continued with med rx. -currently with mild trop elevation, most likely from demand ischemia from afib with rvr and underlying cad, does not appear to be acs as she is asymptomatic without chest pain/anginal sx -Cont tele. -cont home ac, statin. -repeat echo normal LVEF with normally functioning MVR/AVR s/p mech avr/mvr: -No signs of chf, normal function on echo. Continue coumadin per inr, goal 2.5- 3.5. thoracic aortic aneurysm: -has been stable, Continue BP control as doing. Routine annual monitoring. htn: -bp on low side initially, improved now, monitor hld: -stable on statin. afib: -new diagnosis -cont ac -cont sotalol and mexilitine -rate improved, monitor on tele Prolonged QT on tele, history of NSVT -keep K/Mg 2+ normalized -jovana co'ed - evaluated by EP Dr. Cook - sotalol reduced to 120 mg BID, continue mexilitine - outpatient EP follow up, event monitoring
[2020-06-29] MEDS: WARFARIN NA 3 MG TABLET PO SCH (17:01)
--- NOTE | 2020-06-29 17:48 | PN ---
Progress Note (short form) - Note Progress Note: Active Medications Cefuroxime Axetil (Ceftin -) 250 mg PO BID [facility] Last Admin: 06/29/20 09:12 Dose: 250 mg Documented by: Levothyroxine Sodium (Synthroid -) 75 mcg PO DAILY@0700 [facility] Last Admin: 06/29/20 06:04 Dose: 75 mcg Documented by: Melatonin (Melatonin) 3 mg PO [facility] Mexilitene 150mg (Tablet) 1 each PO BID [facility] Last Admin: 06/29/20 09:24 Dose: 1 each Documented by: Prednisone (Deltasone -) 7.5 mg PO DAILY [facility] Last Admin: 06/29/20 09:13 Dose: 7.5 mg Documented by: Sotalol HCl (Betapace -) 120 mg PO BID [facility] Last Admin: 06/29/20 09:12 Dose: 120 mg Documented by: Laboratory Results - last 24 hr 06/26/20 06/29/20 06/29/20 20:20 05:56 05:56 WBC 3.6 L RBC 3.55 L Hgb 10.2 L Hct 31.4 L MCV 88.4 MCH 28.8 MCHC 32.6 RDW 18.5 H Plt Count 245 MPV 7.8 PT with INR 50.20 H INR 4.19 H* Sodium Potassium Chloride Carbon Dioxide Anion Gap BUN Creatinine Est GFR (CKD-EPI)AfAm Est GFR (CKD-EPI)NonAf Random Glucose Calcium COVID-19 ([place]) Not detected 06/29/20 05:56 WBC RBC Hgb Hct MCV MCH MCHC RDW Plt Count MPV PT with INR INR Sodium 140 Potassium 4.1 Chloride 109 H Carbon Dioxide 25 Anion Gap 6 L BUN 22.8 H Creatinine 0.6 Est GFR (CKD-EPI)AfAm 97.01 Est GFR (CKD-EPI)NonAf 83.70 Random Glucose 74 Calcium 8.0 L COVID-19 ([place]) Vital Signs Temperature 97.6 F 06/29/20 14:07 Pulse Rate 83 06/29/20 14:07 Respiratory Rate 18 06/29/20 14:07 Blood Pressure 115/63 06/29/20 14:07 O2 Sat by Pulse Oximetry (%) 97 06/29/20 09:00 CC: feels a bit groggy, but is okay ```````````````````` skin--NL color eyes--anicteric; eomi heart--[facility]--clear ext--no edema neuro--alert; lucid, coherent, no deficits noted; non toxic or ill appearing ````````````````````````````````````````````` Summ > hx Vtach--will cont with Mexitil as per both pt & cardio; HR mostly in sinus, occasional PVcs, no V-tch > elevated Trop--trending down (see cardio note); cont same agents > Azotemia--? dehydration; improved, will stop IVF > PaTF--with [facility] valve; cont a/c, adjust to INR 3 to 3.5; hold Warf today > RA--active disease, now off immunosupressing drugs due to intolerable ill effects (and because of QT prolongation effects) > fatigue--nearly resolved, once taken off immune agents and started on prednisone; will maintain on 7.5mg Qd > UtI--pyuria on admission; Given Abs; culture is negative; will stop PO Cefurox. > anemia--mild (not new), NC, NC > Qt prolongation--Cardio notes read & appreciated; is now of Hydrochloroquine; PLaN: cont Sotalol at lower dose and keep mexitil ``````````````````````````````` Dr Oglesby Problem List - Problems (1) Weakness Code(s): R53.1 - WEAKNESS (2) Atrial fibrillation with RVR Code(s): I48.91 - UNSPECIFIED ATRIAL FIBRILLATION (3) Troponin level elevated Code(s): R77.8 - OTHER SPECIFIED ABNORMALITIES OF PLASMA PROTEINS (4) CAD (coronary artery disease) Code(s): I25.10 - ATHSCL HEART DISEASE OF [place] CORONARY ARTERY W/O ANG PCTRS Qualifiers: Coronary Disease-Associated Artery/Lesion type: [place] artery Associated angina: without angina (5) H/O aortic valve replacement Code(s): Z95.2 - PRESENCE OF PROSTHETIC HEART VALVE (6) Hypothyroid Code(s): E03.9 - HYPOTHYROIDISM, UNSPECIFIED Qualifiers: Hypothyroidism type: acquired Qualified Code(s): E03.9 - Hypothyroidism, unspecified (7) Rheumatoid arthritis Code(s): M06.9 - RHEUMATOID ARTHRITIS, UNSPECIFIED Qualifiers: Rheumatoid arthritis location: unspecified site Rheumatoid factor presence: unspecified presence Qualified Code(s): M06.9 - Rheumatoid arthritis, unspecified (8) High lactic acid dehydrogenase (LDH) level Code(s): R74.02 - ELEVATION OF LEVELS OF LACTIC ACID DEHYDROGENASE [LDH] (9) MAIC (mycobacterium avium-intracellulare complex) Code(s): A31.0 - PULMONARY MYCOBACTERIAL INFECTION (10) History of lung cancer in adulthood Code(s): Z85.118 - PERSONAL HISTORY OF MALIGNANT NEOPLASM OF BRONCHUS AND LUNG (11) Bacteriuria with pyuria Code(s): R82.71 - BACTERIURIA; R82.81 - PYURIA (12) Pleural effusion Code(s): J90 - PLEURAL EFFUSION, NOT ELSEWHERE CLASSIFIED (13) Aortic aneurysm Code(s): I71.9 - AORTIC ANEURYSM OF UNSPECIFIED SITE, WITHOUT RUPTURE Qualifiers: Aortic location: thoracic aorta Presence of rupture: without rupture Qualified Code(s): I71.2 - Thoracic aortic aneurysm, without rupture (14) Long-term (current) use of anticoagulants, INR goal 2.5-3.5 Code(s): Z79.01 - VENDING SUPERVISOR (CURRENT) USE OF ANTICOAGULANTS (15) History of ventricular tachycardia Code(s): Z86.79 - PERSONAL HISTORY OF OTHER DISEASES OF THE CIRCULATORY SYSTEM
[2020-06-29] MEDS ORDERED: MELATONIN 1 MG TABLET PO SCH (22:00)
[2020-06-30] MEDS: LEVOTHYROXINE NA 75 MCG TABLET (FP) PO SCH (06:10)
[2020-06-30 07:00] LABS: HEMATOCRIT 31.3 % (32.4-45.2); HEMOGLOBIN 10.3 GM/dL (10.7-15.3); MCH 29.3 pg (25.7-33.7); MCHC 32.8 g/dl (32.0-36.0); MEAN CELL VOLUME 89.3 fl (80-96); MEAN PLT VOLUME 8.5 fl (7.5-11.1); PLATELET COUNT 244 K/MM3 (134-434); RDW 18.8 % (11.6-15.6); WHITE BLOOD COUNT 3.7 K/mm3 (4.0-10.0)
[2020-06-30 07:04] LABS: INR 3.98 (0.83-1.09); PROTHROMBIN TIME (PATIENT) 47.6 SEC (9.7-13.0)
[2020-06-30 07:17] LABS: CALCIUM 8.5 mg/dL (8.5-10.1); CREATININE 0.7 mg/dL (0.55-1.3); MAGNESIUM 2.2 mg/dL (1.8-2.4); POTASSIUM 4.2 mmol/L (3.5-5.1)
[2020-06-30] MEDS: SOTALOL HCL 80 MG TABLET (FP) PO SCH (09:51)
[2020-06-30] MEDS: predniSONE 5 MG TABLET (UD) PO SCH (09:51)
[2020-06-30] MEDS: MEXILETINE 150 MG PO SCH (09:53)
[2020-06-30 11:31] VITALS: BP 129/70; PULSE 75; TEMP 98.3
--- NOTE | 2020-06-30 11:54 | DS ---
Physical Examination Vital Signs: Vital Signs Temperature 98.3 F 06/30/20 10:00 Pulse Rate 75 06/30/20 10:00 Respiratory Rate 18 06/30/20 10:00 Blood Pressure 129/70 06/30/20 10:00 O2 Sat by Pulse Oximetry (%) 97 06/30/20 09:00 Constitutional: Yes: Well Nourished, No Distress, Calm Eyes: Yes: Conjunctiva Clear, EOM Intact Neck: Yes: WNL Cardiovascular: Yes: Pulse Irregular, Other (mech sounds) Respiratory: Yes: Regular Gastrointestinal: Yes: Normal Bowel Sounds, Soft ...Rectal Exam: Yes: Deferred Musculoskeletal: Yes: WNL Extremities: Yes: WNL Edema: No Integumentary: Yes: WNL Neurological: Yes: WNL, Alert ...Motor Strength: WNL Psychiatric: Yes: WNL Labs: CBC, BMP 06/30/20 06:05 06/30/20 06:05 Discharge Summary Problems reviewed: Yes Reason For Visit: WEAKNESS, ATRIAL FIBRILLATION WITH RAPID VENTRICUL Current Active Problems Aortic aneurysm (Acute) Atrial fibrillation with RVR (Acute) Bacteriuria with pyuria (Acute) H/O aortic valve replacement (Acute) High lactic acid dehydrogenase (LDH) level (Acute) History of lung cancer in adulthood (Acute) History of ventricular tachycardia (Acute) Hypothyroid (Acute) Long-term (current) use of anticoagulants, INR goal 2.5-3.5 (Acute) MAIC (mycobacterium avium-intracellulare complex) (Acute) PVC's (premature ventricular contractions) (Acute) Pleural effusion (Acute) Rheumatoid arthritis (Acute) Troponin level elevated (Acute) Weakness (Acute) dehydration Hospital Course: 84 YO F admitted 2/2 profound weakness hypotension, and hypoxia who was found to have a high Troponin. D-dimer high but no PE evident. Braeden had been feeling weak and listless for a long time and culminated to what resulted on admission. She was Given IVF to raise her BP, and rehydrated, and was given Abs. The BC was negative; the Urine culture wasd negative but taken after Abs given. She was taken off 3 antiRheum drugs and placed on prednisone. Her HR was initially ATF, and converted to sinus, she did have some ventricular ectopy but nothing sustained. She was seen by Cardiology who advised, reducing the dose of the Sotalol which was done. Her VS remained stable and her stamina improved; her Troponins trended back down and the ECHIO did not show any gross abnormalities. CT scan of chest on admission showed chronic issues with hjer lungs and stable TAA size. Health Concerns: safety Plan of Treatment: cont medical management Goals: f/u with Cardiology Condition: Improved - Instructions Diet, Activity, Other Instructions: low salt diet drink fluids, and avoid exertion STOP: Lefliunide; Azohtiaprine and Hydroxychloroquine Referrals: Trace Oglesby MD [Staff Physician] - Dakota Galarza MD [Staff Physician] - Disposition: HOME - Home Medications Comprehensive Discharge Medication List: Ambulatory Orders Folic Acid - 1 mg PO DAILY 08/29/12 Raloxifene HCl [Evista] 60 mg PO DAILY 08/29/12 Atorvastatin Ca [Lipitor] 20 mg PO HS #0 tablet 02/28/14 Levothyroxine [Synthroid -] 75 mcg PO DAILY #0 tablet 02/28/14 Mexiletine HCl 150 mg PO TID #0 capsule 02/28/14 Warfarin Na [Coumadin -] 6 mg PO DAILY #0 tablet 02/28/14 Sotalol HCl [Betapace -] 120 mg PO BID #180 tablet 06/30/20 predniSONE [Deltasone -] 7.5 mg PO DAILY #90 tablet 06/30/20
--- NOTE | 2020-06-30 12:30 | PN ---
Progress Note (short form) - Note Progress Note: cc: weakness s: no chest pain, palps, dizziness, dyspnea Current Medications Generic Name Dose Route Start Last Admin Trade Name Victor M PRN Reason Stop Dose Admin Levothyroxine Sodium 75 mcg 06/27/20 07:00 06/30/20 06:10 Synthroid - PO 75 mcg DAILY@0700 VICENTE Administration Melatonin 3 mg 06/29/20 22:00 06/29/20 21:23 Melatonin PO 3 mg HS VICENTE Administration Mexilitene 150mg 1 each 06/28/20 10:00 06/30/20 09:53 Tablet PO 1 each BID VICENTE Administration Prednisone 7.5 mg 06/28/20 10:00 06/30/20 09:51 Deltasone - PO 7.5 mg DAILY VICENTE Administration Sotalol HCl 120 mg 06/28/20 22:00 06/30/20 09:51 Betapace - PO 120 mg BID VICENTE Administration Vital Signs Period Temp Pulse Resp BP Sys/Thompson Pulse Ox Last 24 Hr 97.3 F-98.3 F 68-83 18-20 108-143/60-70 95-97 Constitutional: Yes: No Distress, Calm Eyes: Yes: Conjunctiva Clear, EOM Intact Cardiovascular: Yes: Regular Rate and Rhythm, nl s1 s2 Respiratory: Yes: CTA Bilaterally (no rales or wheezing) Gastrointestinal: Yes: Soft (nt) Edema: No Neurological: Yes: Alert, Oriented no jaundice, diaphoresis not agitated Assessment/Plan DATA: ct chest: no sig chf echo 06/2019: nl lv/rv, nl [facility] valves, mod tr, mild phtn, TAA 4.8 cm ecg 09/18/14: afib, rvr, rbbb mibi 02/2020: mod lat wall ischemia, nl lvef tele: NSR, 6 bt NSVT a/p: 84 f hx [facility] AVR and [facility] MVR on AC, presumed cad (positive stress test), thoracic aortic aneurysm, lung ca s/p lobectomy, htn, hld, hypothyroid, NSVT on sotalol, here with generalized weakness and sob. weakness, sob: -no signs chf -infectious w/u in progress -initially with afib/rvr, now hr improved, stable on tele elevated trops, cad: -pt with known hx of presumed cad with several prior abnormal stress tests. M ost recent nuclear stress test was 02/2020 and showed mod lat wall ischemia which was felt to be low risk and not causing symptoms so continued with med rx. -currently with mild trop elevation, most likely from demand ischemia from afib with rvr and underlying cad, does not appear to be acs as she is asymptomatic without chest pain/anginal sx -Cont tele. -cont home ac, statin. -repeat echo normal LVEF with normally functioning MVR/AVR s/p mech avr/mvr: -No signs of chf, normal function on echo. Continue coumadin per inr, goal 2.5- 3.5. thoracic aortic aneurysm: -has been stable, Continue BP control as doing. Routine annual monitoring. htn: -bp on low side initially, improved now, monitor hld: -stable on statin. afib: -new diagnosis -cont ac -cont sotalol and mexilitine -rate improved, monitor on tele Prolonged QT on tele, history of NSVT -keep K/Mg 2+ normalized -remeron dc'ed - evaluated by EP Dr. Cook - sotalol reduced to 120 mg BID, continue mexilitine - outpatient EP follow up, event monitor stable for dc from cardiac perspective
== END 2020-06-30 14:53 | disposition home or self-care (01) | DRG 309 ==
LOC: JER 14:29 → JERBED 18:37 → J4W 06-27 20:07
PROVIDERS: ADMIT Internal Medicine; ATTEND Internal Medicine
DX: I48.0 Paroxysmal atrial fibrillation (principal); I24.8 Other forms of acute ischemic heart disease; J90 Pleural effusion, not elsewhere classified; Z95.2 Presence of prosthetic heart valve; I47.1 Supraventricular tachycardia; M06.9 Rheumatoid arthritis, unspecified; Z79.01 Long term (current) use of anticoagulants; E78.5 Hyperlipidemia, unspecified; E03.9 Hypothyroidism, unspecified; I10 Essential (primary) hypertension; I71.2 Thoracic aortic aneurysm, without rupture; I25.10 Atherosclerotic heart disease of native coronary artery without angina pectoris; R53.1 Weakness; R94.31 Abnormal electrocardiogram [ECG] [EKG]; I45.10 Unspecified right bundle-branch block; I49.3 Ventricular premature depolarization; Z85.118 Personal history of other malignant neoplasm of bronchus and lung; D64.9 Anemia, unspecified; I95.9 Hypotension, unspecified; R82.71 Bacteriuria
CPT/HCPCS: 36415; 36600; 71045-TC-FY; 71250-TC; 73560-TC-RT-FY; 80048; 80053; 80061; 81003; 82085; 82550; 82607; 82803; 82962; 83036; 83605; 83615; 83721; 83735; 84439; 84443; 84484; 84550; 85025; 85027; 85379; 85610; 85651; 85730; 86140; 86618; 87040; 87086; 93005; 93010; 93306-TC; 99285-25; C9803; J1100; U0003

== ENCOUNTER 2020-12-05 20:13 | Inpatient (IN) | payer OTHER, BC ==
[2020-12-05] MEDS ORDERED: SODIUM CHLORIDE 500 ML IV STA (20:45)
[2020-12-05] MEDS ORDERED: SODIUM CHLORIDE 1,000 ML IV STA (20:53)
[2020-12-05 20:58] VITALS: BMI 21.9
[2020-12-05 21:59] LABS: BASO % 0.4 % (0-2.0); EOS % 0.3 % (0-4.5); HEMATOCRIT 32.7 % (32.4-45.2); HEMOGLOBIN 10.4 GM/dL (10.7-15.3); LYMPH % 9.7 % (8-40); MCH 26.1 pg (25.7-33.7); MCHC 31.7 g/dl (32.0-36.0); MEAN CELL VOLUME 82.1 fl (80-96); MEAN PLT VOLUME 8.5 fl (7.5-11.1); NEUT % 76.6 % (42.8-82.8); PLATELET COUNT 307 K/MM3 (134-434); RBC 3.98 M/mm3 (3.60-5.2); RDW 17.7 % (11.6-15.6); WHITE BLOOD COUNT 7.8 K/mm3 (4.0-10.0)
[2020-12-05 22:32] LABS: POTASSIUM 4.4 mmol/L (3.5-5.1)
[2020-12-05 22:35] LABS: BLOOD UREA NITROGEN 18.7 mg/dL (7-18)
[2020-12-05 22:38] LABS: CREATININE 0.8 mg/dL (0.55-1.3)
[2020-12-05 22:40] LABS: BILIRUBIN,TOTAL 0.5 mg/dL (0.2-1)
[2020-12-05] MEDS ORDERED: GABAPENTIN 300 MG CAPSULE PO ONE (23:41)
[2020-12-06 05:02] LABS: INR 3.66 (0.83-1.09); PROTHROMBIN TIME (PATIENT) 42.7 SEC (9.7-13.0)
[2020-12-06 05:04] LABS: ACTIVATED PTT 43.5 SECONDS (25.2-36.5)
[2020-12-06] MEDS: LEVOTHYROXINE NA 75 MCG TABLET (FP) PO SCH (06:07)
[2020-12-06] MEDS ORDERED: METOPROLOL TARTRATE 5 MG/5 ML VIAL ONE (07:35)
[2020-12-06] MEDS: SOTALOL HCL 80 MG TABLET (FP) PO SCH ×2 (09:55→21:05)
[2020-12-06] MEDS ORDERED: GABAPENTIN 300 MG CAPSULE PO SCH (10:00)
[2020-12-06] MEDS ORDERED: SOTALOL HCL 80 MG TABLET (FP) PO SCH ×2 (10:00)
[2020-12-06] MEDS: predniSONE 5 MG TABLET (UD) PO SCH (10:05)
[2020-12-06] MEDS: WARFARIN NA 3 MG TABLET PO ONE ×2 (17:50→17:55)
[2020-12-06] MEDS: ATORVASTATIN CA 20 MG TABLET (FP) PO SCH (21:05)
[2020-12-06] MEDS: GABAPENTIN 300 MG CAPSULE PO SCH (21:05)
[2020-12-07] MEDS: LEVOTHYROXINE NA 75 MCG TABLET (FP) PO SCH (06:23)
[2020-12-07] MEDS: MEXILETINE 150 MG PO SCH ×3 (07:00→21:58)
[2020-12-07] MEDS: SOTALOL HCL 80 MG TABLET (FP) PO SCH ×2 (09:02→22:04)
[2020-12-07] MEDS: predniSONE 5 MG TABLET (UD) PO SCH (09:05)
[2020-12-07 09:13] LABS: INR 3.53 (0.83-1.09); PROTHROMBIN TIME (PATIENT) 41.2 SEC (9.7-13.0)
[2020-12-07 09:38] LABS: MAGNESIUM 2.2 mg/dL (1.8-2.4)
[2020-12-07 10:07] LABS: POTASSIUM 4.6 mmol/L (3.5-5.1)
[2020-12-07 10:10] LABS: BLOOD UREA NITROGEN 20.8 mg/dL (7-18)
[2020-12-07 10:13] LABS: CREATININE 0.9 mg/dL (0.55-1.3)
[2020-12-07] MEDS: METOPROLOL TARTRATE 25 MG TABLET (FP) PO SCH ×2 (11:04→21:56)
[2020-12-07] MEDS ORDERED: DIGOXIN 0.25 MG TABLET (FP) PO ONE (14:00)
[2020-12-07] MEDS ORDERED: METOPROLOL TARTRATE 5 MG/5 ML VIAL ONE (17:28)
[2020-12-07] MEDS ORDERED: METOPROLOL TARTRATE 5 MG/5 ML VIAL IVPB ONE (17:45)
[2020-12-07] MEDS ORDERED: WARFARIN NA 2 MG TABLET PO ONE (18:00)
[2020-12-07] MEDS: clonazePAM 0.5 MG TABLET PO SCH (21:58)
[2020-12-07] MEDS: GABAPENTIN 300 MG CAPSULE PO SCH (21:58)
[2020-12-07] MEDS: ATORVASTATIN CA 20 MG TABLET (FP) PO SCH (21:58)
[2020-12-08] MEDS: LEVOTHYROXINE NA 75 MCG TABLET (FP) PO SCH (06:02)
[2020-12-08 09:09] LABS: PROTHROMBIN TIME (PATIENT) 56.5 SEC (9.7-13.0)
[2020-12-08] MEDS: SOTALOL HCL 80 MG TABLET (FP) PO SCH ×2 (09:15→21:22)
[2020-12-08] MEDS: MEXILETINE 150 MG PO SCH ×2 (09:16→21:22)
[2020-12-08] MEDS: METOPROLOL TARTRATE 25 MG TABLET (FP) PO SCH ×2 (09:16→21:22)
[2020-12-08] MEDS: predniSONE 5 MG TABLET (UD) PO SCH (09:16)
[2020-12-08 09:30] LABS: POTASSIUM 4.1 mmol/L (3.5-5.1)
[2020-12-08 09:31] LABS: CALCIUM 8.6 mg/dL (8.5-10.1)
[2020-12-08 09:32] LABS: BLOOD UREA NITROGEN 20.6 mg/dL (7-18)
[2020-12-08 09:35] LABS: CREATININE 0.7 mg/dL (0.55-1.3)
[2020-12-08 11:30] LABS: INR 4.57 (0.83-1.09)
[2020-12-08] MEDS: dilTIAZem HCL 30 MG TABLET PO SCH ×2 (16:34→21:21)
[2020-12-08] MEDS ORDERED: MELATONIN 5 MG TABLETS PO ONE (21:12)
[2020-12-08] MEDS: clonazePAM 0.5 MG TABLET PO SCH (21:20)
[2020-12-08] MEDS: GABAPENTIN 300 MG CAPSULE PO SCH (21:22)
[2020-12-08] MEDS: ATORVASTATIN CA 20 MG TABLET (FP) PO SCH (21:22)
[2020-12-09] MEDS: dilTIAZem HCL 30 MG TABLET PO SCH (06:06)
[2020-12-09] MEDS: LEVOTHYROXINE NA 75 MCG TABLET (FP) PO SCH (06:07)
[2020-12-09 08:26] LABS: INR 4.09 (0.83-1.09); PROTHROMBIN TIME (PATIENT) 47.5 SEC (9.7-13.0)
[2020-12-09] MEDS: predniSONE 5 MG TABLET (UD) PO SCH (09:20)
[2020-12-09] MEDS: MEXILETINE 150 MG PO SCH ×2 (09:21→21:42)
[2020-12-09] MEDS: METOPROLOL TARTRATE 25 MG TABLET (FP) PO SCH (09:21)
[2020-12-09] MEDS: SOTALOL HCL 80 MG TABLET (FP) PO SCH (09:21)
[2020-12-09] MEDS ORDERED: DIGOXIN 0.25 MG TABLET (FP) PO ONE ×2 (12:03→17:45)
[2020-12-09] MEDS ORDERED: METOPROLOL TARTRATE 5 MG/5 ML VIAL IVPUSH ONE (17:45)
[2020-12-09] MEDS: METOPROLOL TARTRATE 50 MG TABLET (FP) PO SCH ×2 (19:57→21:58)
[2020-12-09] MEDS: GABAPENTIN 300 MG CAPSULE PO SCH (21:35)
[2020-12-09] MEDS: CEFUROXIME AXETIL 250 MG TABLET PO SCH (21:35)
[2020-12-09] MEDS: ATORVASTATIN CA 20 MG TABLET (FP) PO SCH (21:35)
[2020-12-09] MEDS: SENNOSIDES 8.6MG TABLET (FP) PO SCH (21:35)
[2020-12-09] MEDS: clonazePAM 0.5 MG TABLET PO SCH (21:35)
[2020-12-09] MEDS ORDERED: PT OWN MED DRAWER 7, Y5N ONE (21:38)
[2020-12-09] MEDS ORDERED: AMIODARONE IN DEXTROSE,ISO-OSM 150 MG/100 ML BAG IVPB ONE (22:36)
[2020-12-09] MEDS ORDERED: AMIODARONE IN DEXTROSE,ISO-OSM 360 MG/200 ML BAG IVPB ONE (22:45)
[2020-12-09] MEDS ORDERED: AMIODARONE HCL 150 MG/3 ML VIAL IVPUSH ONE (23:00)
[2020-12-10] MEDS ORDERED: ACETAMINOPHEN 325 MG TABLET (FP) PO ONE (00:15)
[2020-12-10] MEDS ORDERED: AMIODARONE IN DEXTROSE,ISO-OSM 360 MG/200 ML BAG IVPB SCH (04:45)
[2020-12-10] MEDS: LEVOTHYROXINE NA 75 MCG TABLET (FP) PO SCH (06:15)
[2020-12-10 06:36] LABS: PROTHROMBIN TIME (PATIENT) 35.2 SEC (9.7-13.0)
[2020-12-10 07:15] LABS: POTASSIUM 3.9 mmol/L (3.5-5.1)
[2020-12-10 07:32] LABS: ALBUMIN 2.8 g/dl (3.4-5.0); BLOOD UREA NITROGEN 15.1 mg/dL (7-18); CALCIUM 8.8 mg/dL (8.5-10.1)
[2020-12-10 07:35] LABS: CREATININE 0.8 mg/dL (0.55-1.3)
[2020-12-10 07:37] LABS: BILIRUBIN,TOTAL 0.4 mg/dL (0.2-1); TOT PROT 5.7 g/dl (6.4-8.2)
[2020-12-10] MEDS: METOPROLOL TARTRATE 50 MG TABLET (FP) PO SCH ×2 (09:34→18:58)
[2020-12-10] MEDS: CEFUROXIME AXETIL 250 MG TABLET PO SCH ×2 (09:34→21:48)
[2020-12-10] MEDS: predniSONE 5 MG TABLET (UD) PO SCH (09:34)
[2020-12-10] MEDS: MEXILETINE 150 MG PO SCH ×2 (09:35→21:50)
[2020-12-10] MEDS: POLYETHYLENE GLYCOL 3350 119 GM BTL PO SCH (09:35)
[2020-12-10] MEDS ORDERED: PT OWN MED DRAWER 7, Y5N ONE (09:41)
[2020-12-10] MEDS ORDERED: WARFARIN NA 2.5 MG TABLET PO ONE (18:00)
[2020-12-10] MEDS ORDERED: ACETAMINOPHEN 325 MG TABLET (FP) PO PRN (18:27)
[2020-12-10] MEDS: AMIODARONE HCL 200 MG TABLET PO SCH (21:48)
[2020-12-10] MEDS: GABAPENTIN 300 MG CAPSULE PO SCH (21:48)
[2020-12-10] MEDS: ATORVASTATIN CA 20 MG TABLET (FP) PO SCH (21:48)
[2020-12-10] MEDS: clonazePAM 0.5 MG TABLET PO SCH (21:49)
[2020-12-10] MEDS: SENNOSIDES 8.6MG TABLET (FP) PO SCH (21:49)
[2020-12-11] MEDS: LEVOTHYROXINE NA 75 MCG TABLET (FP) PO SCH (06:23)
[2020-12-11 07:47] LABS: INR 2.56 (0.83-1.09); PROTHROMBIN TIME (PATIENT) 30.1 SEC (9.7-13.0)
[2020-12-11 07:51] LABS: POTASSIUM 4.1 mmol/L (3.5-5.1)
[2020-12-11] MEDS ORDERED: METOPROLOL TARTRATE 50 MG TABLET (FP) PO SCH (08:00)
[2020-12-11 08:11] LABS: CALCIUM 9.2 mg/dL (8.5-10.1)
[2020-12-11 08:12] LABS: BLOOD UREA NITROGEN 16.4 mg/dL (7-18)
[2020-12-11 08:15] LABS: CREATININE 0.7 mg/dL (0.55-1.3)
[2020-12-11] MEDS: CEFUROXIME AXETIL 250 MG TABLET PO SCH ×2 (09:49→21:48)
[2020-12-11] MEDS: AMIODARONE HCL 200 MG TABLET PO SCH ×2 (09:49→21:49)
[2020-12-11] MEDS: POLYETHYLENE GLYCOL 3350 119 GM BTL PO SCH (09:50)
[2020-12-11] MEDS: predniSONE 5 MG TABLET (UD) PO SCH (09:50)
[2020-12-11] MEDS: MEXILETINE 150 MG PO SCH ×2 (09:51→21:50)
[2020-12-11] MEDS: GABAPENTIN 300 MG CAPSULE PO SCH (21:48)
[2020-12-11] MEDS: WARFARIN NA 2.5 MG TABLET PO SCH (21:48)
[2020-12-11] MEDS: SENNOSIDES 8.6MG TABLET (FP) PO SCH (21:49)
[2020-12-11] MEDS: ATORVASTATIN CA 20 MG TABLET (FP) PO SCH (21:49)
[2020-12-11] MEDS: METOPROLOL TARTRATE 25 MG TABLET (FP) PO SCH (21:49)
[2020-12-11] MEDS ORDERED: MIRTAZAPINE 15 MG TABLET (FP) PO SCH (22:00)
[2020-12-11 22:07] LABS: INR 2.74 (0.83-1.09); PROTHROMBIN TIME (PATIENT) 32.2 SEC (9.7-13.0)
[2020-12-12] MEDS: LEVOTHYROXINE NA 75 MCG TABLET (FP) PO SCH (06:09)
[2020-12-12] MEDS ORDERED: PT OWN MED DRAWER 7, Y5N ONE (06:59)
[2020-12-12 07:46] LABS: POTASSIUM 3.9 mmol/L (3.5-5.1)
[2020-12-12 07:47] LABS: CALCIUM 8.7 mg/dL (8.5-10.1)
[2020-12-12 07:49] LABS: BLOOD UREA NITROGEN 20.2 mg/dL (7-18)
[2020-12-12 07:51] LABS: CREATININE 0.8 mg/dL (0.55-1.3)
[2020-12-12] MEDS: CEFUROXIME AXETIL 250 MG TABLET PO SCH ×2 (09:40→21:16)
[2020-12-12] MEDS: predniSONE 5 MG TABLET (UD) PO SCH (09:40)
[2020-12-12] MEDS: METOPROLOL TARTRATE 25 MG TABLET (FP) PO SCH ×2 (09:41→19:55)
[2020-12-12] MEDS: AMIODARONE HCL 200 MG TABLET PO SCH ×2 (09:41→21:16)
[2020-12-12] MEDS: MEXILETINE 150 MG PO SCH ×2 (09:41→21:19)
[2020-12-12] MEDS: POLYETHYLENE GLYCOL 3350 119 GM BTL PO SCH (09:42)
[2020-12-12] MEDS ORDERED: METOPROLOL TARTRATE 25 MG TABLET (FP) PO ONE (15:30)
[2020-12-12 20:16] LABS: INR 2.66 (0.83-1.09); PROTHROMBIN TIME (PATIENT) 31.8 SEC (9.7-13.0)
[2020-12-12] MEDS: ATORVASTATIN CA 20 MG TABLET (FP) PO SCH (21:16)
[2020-12-12] MEDS: WARFARIN NA 2.5 MG TABLET PO SCH (21:16)
[2020-12-12] MEDS: GABAPENTIN 300 MG CAPSULE PO SCH (21:16)
[2020-12-12] MEDS: SENNOSIDES 8.6MG TABLET (FP) PO SCH (21:16)
[2020-12-13] MEDS: LEVOTHYROXINE NA 75 MCG TABLET (FP) PO SCH (05:59)
[2020-12-13] MEDS: METOPROLOL TARTRATE 25 MG TABLET (FP) PO SCH ×2 (07:53→20:25)
[2020-12-13] MEDS ORDERED: DEXAMETHASONE SOD PHOSPHATE 4 MG/1 ML VIAL IVPUSH ONE (08:00)
[2020-12-13 08:17] LABS: INR 3.04 (0.83-1.09); POTASSIUM 4.2 mmol/L (3.5-5.1); PROTHROMBIN TIME (PATIENT) 36.2 SEC (9.7-13.0)
[2020-12-13 08:23] LABS: CALCIUM 8.6 mg/dL (8.5-10.1)
[2020-12-13 08:24] LABS: BLOOD UREA NITROGEN 18.8 mg/dL (7-18); MAGNESIUM 2.1 mg/dL (1.8-2.4)
[2020-12-13 08:27] LABS: CREATININE 0.8 mg/dL (0.55-1.3)
[2020-12-13] MEDS: AMIODARONE HCL 200 MG TABLET PO SCH ×2 (09:53→21:05)
[2020-12-13] MEDS: CEFUROXIME AXETIL 250 MG TABLET PO SCH ×2 (09:54→21:05)
[2020-12-13] MEDS: POLYETHYLENE GLYCOL 3350 119 GM BTL PO SCH (09:55)
[2020-12-13] MEDS: MEXILETINE 150 MG PO SCH ×2 (10:00→21:05)
[2020-12-13] MEDS ORDERED: FUROSEMIDE 20 MG TABLET (FP) PO ONE (14:16)
[2020-12-13] MEDS: WARFARIN NA 2.5 MG TABLET PO SCH (17:08)
[2020-12-13] MEDS: GABAPENTIN 300 MG CAPSULE PO SCH (21:05)
[2020-12-13] MEDS: SENNOSIDES 8.6MG TABLET (FP) PO SCH (21:05)
[2020-12-13] MEDS: ATORVASTATIN CA 20 MG TABLET (FP) PO SCH (21:05)
[2020-12-14] MEDS: LEVOTHYROXINE NA 75 MCG TABLET (FP) PO SCH (06:27)
[2020-12-14 08:05] LABS: HEMATOCRIT 33.4 % (32.4-45.2); HEMOGLOBIN 10.8 GM/dL (10.7-15.3); MCH 26.6 pg (25.7-33.7); MCHC 32.4 g/dl (32.0-36.0); MEAN CELL VOLUME 81.9 fl (80-96); MEAN PLT VOLUME 8.6 fl (7.5-11.1); PLATELET COUNT 302 K/MM3 (134-434); RBC 4.08 M/mm3 (3.60-5.2); RDW 18.4 % (11.6-15.6); WHITE BLOOD COUNT 7.8 K/mm3 (4.0-10.0)
[2020-12-14 08:26] LABS: PROTHROMBIN TIME (PATIENT) 48.9 SEC (9.7-13.0)
[2020-12-14 08:27] LABS: POTASSIUM 4.3 mmol/L (3.5-5.1)
[2020-12-14 08:37] LABS: CALCIUM 8.9 mg/dL (8.5-10.1)
[2020-12-14 08:38] LABS: BLOOD UREA NITROGEN 22.8 mg/dL (7-18)
[2020-12-14 08:53] LABS: INR 4.14 (0.83-1.09)
[2020-12-14] MEDS: CEFUROXIME AXETIL 250 MG TABLET PO SCH ×2 (09:29→22:16)
[2020-12-14] MEDS: METOPROLOL TARTRATE 25 MG TABLET (FP) PO SCH ×2 (09:29→20:27)
[2020-12-14] MEDS: AMIODARONE HCL 200 MG TABLET PO SCH ×2 (09:30→22:16)
[2020-12-14] MEDS: predniSONE 10 MG TABLET (UD) PO SCH (09:30)
[2020-12-14] MEDS: POLYETHYLENE GLYCOL 3350 119 GM BTL PO SCH (10:10)
[2020-12-14] MEDS: MEXILETINE 150 MG PO SCH ×2 (10:12→22:16)
[2020-12-14] MEDS: SENNOSIDES 8.6MG TABLET (FP) PO SCH (22:16)
[2020-12-14] MEDS: ATORVASTATIN CA 20 MG TABLET (FP) PO SCH (22:16)
[2020-12-14] MEDS: GABAPENTIN 300 MG CAPSULE PO SCH (22:16)
[2020-12-15] MEDS: LEVOTHYROXINE NA 75 MCG TABLET (FP) PO SCH (06:39)
[2020-12-15] MEDS: CEFUROXIME AXETIL 250 MG TABLET PO SCH ×2 (09:09→21:51)
[2020-12-15] MEDS: predniSONE 10 MG TABLET (UD) PO SCH (09:09)
[2020-12-15] MEDS: AMIODARONE HCL 200 MG TABLET PO SCH ×2 (09:09→21:51)
[2020-12-15] MEDS: METOPROLOL TARTRATE 25 MG TABLET (FP) PO SCH ×2 (09:09→21:52)
[2020-12-15 09:10] LABS: HEMOGLOBIN 9.9 GM/dL (10.7-15.3); MCH 26.2 pg (25.7-33.7); MEAN CELL VOLUME 81.9 fl (80-96); MEAN PLT VOLUME 8.9 fl (7.5-11.1); PLATELET COUNT 267 K/MM3 (134-434); RBC 3.79 M/mm3 (3.60-5.2); RDW 17.7 % (11.6-15.6); WHITE BLOOD COUNT 6.9 K/mm3 (4.0-10.0)
[2020-12-15] MEDS: POLYETHYLENE GLYCOL 3350 119 GM BTL PO SCH (09:10)
[2020-12-15] MEDS: MEXILETINE 150 MG PO SCH ×2 (09:10→21:52)
[2020-12-15 09:17] LABS: PROTHROMBIN TIME (PATIENT) 48.7 SEC (9.7-13.0)
[2020-12-15 09:25] LABS: POTASSIUM 4.1 mmol/L (3.5-5.1)
[2020-12-15 09:33] LABS: ALBUMIN 2.7 g/dl (3.4-5.0); BLOOD UREA NITROGEN 22.2 mg/dL (7-18); CALCIUM 8.6 mg/dL (8.5-10.1)
[2020-12-15 09:36] LABS: CREATININE 0.8 mg/dL (0.55-1.3)
[2020-12-15 09:37] LABS: BILIRUBIN,TOTAL 0.6 mg/dL (0.2-1); TOT PROT 5.3 g/dl (6.4-8.2)
[2020-12-15 09:54] LABS: INR 4.2 (0.83-1.09)
[2020-12-15] MEDS: ATORVASTATIN CA 20 MG TABLET (FP) PO SCH (21:51)
[2020-12-15] MEDS: GABAPENTIN 300 MG CAPSULE PO SCH (21:51)
[2020-12-15] MEDS: SENNOSIDES 8.6MG TABLET (FP) PO SCH (21:52)
[2020-12-16] MEDS: LEVOTHYROXINE NA 75 MCG TABLET (FP) PO SCH (07:28)
[2020-12-16 07:47] VITALS: BP 131/91; PULSE 115; TEMP 97.6
[2020-12-16] MEDS: METOPROLOL TARTRATE 25 MG TABLET (FP) PO SCH (07:53)
[2020-12-16 08:34] LABS: PROTHROMBIN TIME (PATIENT) 49.2 SEC (9.7-13.0)
[2020-12-16 08:50] LABS: POTASSIUM 4.3 mmol/L (3.5-5.1)
[2020-12-16 08:52] LABS: INR 4.17 (0.83-1.09)
[2020-12-16 09:04] LABS: ALBUMIN 2.8 g/dl (3.4-5.0); CALCIUM 8.3 mg/dL (8.5-10.1)
[2020-12-16 09:05] LABS: BLOOD UREA NITROGEN 23.8 mg/dL (7-18)
[2020-12-16 09:07] LABS: CREATININE 0.8 mg/dL (0.55-1.3)
[2020-12-16 09:09] LABS: BILIRUBIN,TOTAL 0.4 mg/dL (0.2-1); TOT PROT 5.6 g/dl (6.4-8.2)
[2020-12-16] MEDS ORDERED: PT OWN MED DRAWER 7, Y5N ONE (09:16)
[2020-12-16] MEDS: CEFUROXIME AXETIL 250 MG TABLET PO SCH (09:17)
[2020-12-16] MEDS: predniSONE 10 MG TABLET (UD) PO SCH (09:17)
[2020-12-16] MEDS: AMIODARONE HCL 200 MG TABLET PO SCH (09:17)
[2020-12-16] MEDS: MEXILETINE 150 MG PO SCH (09:22)
[2020-12-16] MEDS: POLYETHYLENE GLYCOL 3350 119 GM BTL PO SCH (09:24)
[2020-12-16] MEDS ORDERED: FAMOTIDINE 20 MG TABLET PO SCH (10:00)
[2020-12-17] MEDS ORDERED: AMIODARONE HCL 200 MG TABLET PO SCH (10:00)
== END 2020-12-16 15:45 | DRG 309 ==
LOC: JER 20:13 → OBSVTOIN 23:13 → JERBED 23:13 → J6WEST-2 12-06 02:43 → J4W 12-09 17:10
PROVIDERS: ADMIT Internal Medicine; ATTEND Internal Medicine
DX: I48.0 Paroxysmal atrial fibrillation (principal); I24.8 Other forms of acute ischemic heart disease; N39.0 Urinary tract infection, site not specified; I25.10 Atherosclerotic heart disease of native coronary artery without angina pectoris; I10 Essential (primary) hypertension; M06.9 Rheumatoid arthritis, unspecified; B96.20 Unspecified Escherichia coli [E. coli] as the cause of diseases classified elsewhere; E78.5 Hyperlipidemia, unspecified; E03.9 Hypothyroidism, unspecified; G62.9 Polyneuropathy, unspecified; K59.09 Other constipation; D64.9 Anemia, unspecified; K64.9 Unspecified hemorrhoids; M54.5 Low back pain; J32.3 Chronic sphenoidal sinusitis; R74.02 Elevation of levels of lactic acid dehydrogenase [LDH]; R94.31 Abnormal electrocardiogram [ECG] [EKG]; R53.1 Weakness; G47.00 Insomnia, unspecified; I71.2 Thoracic aortic aneurysm, without rupture; F32.9 Major depressive disorder, single episode, unspecified; Z85.118 Personal history of other malignant neoplasm of bronchus and lung; Z95.2 Presence of prosthetic heart valve; Z79.52 Long term (current) use of systemic steroids; Z85.828 Personal history of other malignant neoplasm of skin
CPT/HCPCS: 36415; 70450-TC; 71046-TC-FY; 71250-TC; 76856-TC; 80048; 80053; 80162; 81003; 82550; 82607; 83615; 83735; 84439; 84443; 84484; 85025; 85027; 85610; 85651; 85730; 86140; 86160; 86162; 87086; 87186; 87804; 93005; 93010; 97116-GP; 97161-GP; 99285-25; C9803; J0282; U0003; U0005